=== PATIENT | female | born 1960 | race Caucasian/White ===

== ENCOUNTER 2019-07-24 09:04 | Emergency (ER) | payer OTHER, SELFPAY ==
[2019-07-24 09:08] VITALS: BP 177/117; PULSE 101; RESP 18; TEMP 36.7; O2SAT 99; BMI 29.5
--- NOTE | 2019-07-24 09:28 | PC.NURSE ---
left dorsalis pedis pulse doppled successfully
--- NOTE | 2019-07-24 09:31 | USCV_ITS ---
Nya Mayfield Age: 58 Gender: F : 1960 Exam Date: 07/24/2019 09:47 Ordering Phys: Jeanne Phan Technologist: SHOSHANA JARA Exam Location: [facility] – [place]_ Indication: pain/ swelling PROCEDURES: Venous duplex imaging was performed in only the left lower extremity. The following venous structures were evaluated: common femoral vein, profunda vein, proximal portion of the greater saphenous vein, femoral vein, and the popliteal vein. In addition, the posterior tibial and peroneal trunk were evaluated. Serial compression, augmentation maneuvers, and spectral Doppler flow evaluation were performed. FINDINGS: Superficial clot noted in the Left Greaster Saphenous Vein below knee and at the knee/ hunters canal area. Clot does not extend above the knee at this time. All other veins imaged appear free of clot at this time. CONCLUSIONS Superficial thrombus in the left Greater Saphenous Vein below knee and extending proximally to knee. Left lower extremity veins otherwise patent. Jameel Clement MD (Electronically Signed) Final Date: 24 July 2019 13:16 S
--- NOTE | 2019-07-24 09:45 | PC.NURSE ---
portable ultrasound at bedside
[2019-07-24 10:36] VITALS: BP 129/93; PULSE 84; O2SAT 97
--- NOTE | 2019-07-28 07:01 | W.ED.EXTPRO ---
HPI - Extremity Problem General: Chief complaint: Extremity Problem,Nontraumatic Stated complaint: Leg pains Time Seen by Provider: 07/24/19 09:10 Source: patient Mode of arrival: ambulatory Limitations: no limitations History of Present Illness: HPI Narrative: here for pain to L lower leg; concerned for possible blood clot as she has had one of these before; denies swelling/redness MD Complaint: extremity pain Onset (ago): day(s) Pain Consistency: constant Location: left Radiation: none Associated symptoms: Reports no associated symptoms; Deny chest pain, fever(s) or rash Review of Systems Const: Denies: fever or chills Eyes: Denies: change in vision or blurry vision Card: Denies: chest pain, palpitations, irregular heart rhythm, lightheadedness, syncope or shortness of breath on exertion Resp: Denies: shortness of breath, productive cough or pain on inspiration GI: Denies: abdominal pain, nausea, vomiting, heartburn/indigestion or diarrhea : Denies: painful urination Musc: Reports: extremity pain; Denies: neck pain, back pain or joint pain Skin/Breast: Denies: rash Neuro: Denies: headache, numbness in extremities, weakness in extremities, changes in sensation, lack of coordination, difficulty walking, frequent falls, dizziness or slurred speech PFSH ED PFSH: Statuses (acute, chronic, etc) shown below reflect problem list status as previously entered and may not be historically accurate Social History Smoking and tobacco status: never smoked Physical Exam Const: COMMON NORMALS: no apparent distress, oriented x3, alert and well nourished HENMT: COMMON NORMALS: normocephalic and head/scalp atraumatic HEAD & SCALP: normocephalic and atraumatic Neck/C-Spine: COMMON NORMALS: full ROM, no lymphadenopathy, supple and no meningeal signs Chest: COMMONS NORMALS: inspection of chest normal Resp: COMMON NORMALS: normal respiratory effort and clear to auscultation bilaterally AUSCULTATION: clear to auscultation bilaterally Cardio: COMMON NORMALS: regular rate and regular rhythm RATE: regular rate RHYTHM: regular rhythm GI: COMMON NORMALS: normal to inspection, nondistended, normoactive bowel sounds, soft to palpation, non-tender, no hepatosplenomegaly and no masses PALPATION: Yes soft and Yes no hepatosplenomegaly : COMMON NORMALS: Yes no CVA tenderness BLADDER/KIDNEY EXAM: Yes no CVA tenderness Back/Pelvis: COMMON NORMALS: no CVA tenderness and thoracic and lumbar spine normal to inspection Extremity: OTHER: TTP of L posterior lower leg; she has small palpable cord over L anterior knee consistent with superficial thrombus Neuro: COMMON NORMALS: oriented x3 SENSORIUM/ORIENTATION: Yes alert MENINGEAL SIGNS: Yes no meningeal signs Skin: COMMON NORMALS: no rashes or lesions noted GENERAL SKIN EXAM: no rashes or lesions noted Course Vital Signs: Vital signs: Vital Signs Temperature 98.1 F 07/24/19 09:08 Pulse Rate 84 07/24/19 10:36 Respiratory Rate 18 07/24/19 09:08 Blood Pressure 129/93 07/24/19 10:36 Pulse Oximetry 97 07/24/19 10:36 MDM - Extremity (Nontraumatic) MDM Narrative: Medical decision making narrative: pt has large superficial thrombus in GSV; clot is over 5cm in length so given current UpToDate guidelines I think it is advisable to place pt on at least 45 days of anti-coagulation and have her follow up for re-evaluation in 2 wks with her PCP Discharge Plan Discharge Patient Disposition: Home, Self-Care Clinical Impression: Superficial thrombophlebitis Qualifiers: Superficial thrombophlebitis-Involved body area: lower extremity Laterality: left Qualified Code(s): I80.02 - Phlebitis and thrombophlebitis of superficial vessels of left lower extremity Condition: Stable Prescriptions: New Eliquis 5 mg (74 tabs) tablets,dose pack See Rx Instructions .ROUTE .COMPLEX Qty: 74 RF: 0 No Action multivitamin Tablet 1 tab PO DAILY RF: 0 naproxen sodium 220 mg Tablet 220 mg PO DAILY PRN (Reason: Pain) RF: 0 magnesium oxide 500 mg Tablet 1,000 mg PO DAILY RF: 0 levothyroxine 112 mcg Tablet 112 mcg PO DAILY RF: 0 potassium chloride 99 mg PO DAILY RF: 0 Discharge Orders: Discharge Order (Routine); Ordered 07/24/19 Ordered By: Jeanne Phan Referrals: Siobhan Esquivel MD [Primary Care Provider] - Patient Instructions: Superficial Thrombophlebitis (ED), Thrombophlebitis - Superficial Activity Restrictions/Additional Instructions: YOU NEED TO FOLLOW UP WITH YOUR [facility] PROVIDER WITHIN THE NEXT 2 WKS FOR RE-EVALUATION AND TO INITIATE FURTHER TREATMENT PLANS. 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
== END 2019-07-24 10:36 | disposition home or self-care (01) ==
PROVIDERS: Emergency Provider Physician Assistant; Family Provider Family Medicine; PCP Family Medicine
DX: I80.02 Phlebitis and thrombophlebitis of superficial vessels of left lower extremity (principal)
CPT/HCPCS: 93971; 99281

== ENCOUNTER 2019-09-20 07:19 | Day surgery (SDC) | payer BC, SELFPAY ==
[2019-09-19 13:01] VITALS: BMI 51.2
--- NOTE | 2019-09-20 07:41 | P.ANESASSM_ITS ---
Pre-Anesthetic Assessment Pre-Anesthetic Assessment: Height/Weight: Height 1.57 m Weight 127.006 kg Preop Diagnosis: screening Proposed Procedure: Operation Date: 09/20/19 09:00 Proposed Procedures p Colonoscopy(Not Applicable) - Davy Zepeda MD Familial anesthetic complications: None Was Beta Krystle taken within 24 hour s: N/A Last intake: NPO > 8 hrr 09/18 1030 water Social: Social History: No alcohol and No tobacco Exam: Pre-Anes Outpt Exam: alert, oriented x 3, clear to auscultation bilaterally and regular rate & rhythm Airway: Cervical ROM: WNL MP: 2 Additional comments: missing teeth, Partial in place Pulmonary: Pulmonary: Asthma and URI Comments: congestion the last few days (no fevers or other symptoms) CV/HEM: CV/HEM: Anemia and None reported : : None reported Hepatic: Hepatic: None reported GI: GI: None reported Metabolic: Metabolic: Thyroid Musc/skel: Musc/skel: None reported Neuropsych: Neuropsych: None reported Anesthetic Plan: ASA status: 2 Anesthesia: MAC PFSH Anesthesia PFSH: Social History Smoking and tobacco status: never smoked Data Anesthesia Cardiac Studies: No Data to Display
[2019-09-20] MEDS: sodium chloride 0.9% 1,000 ML 30 ML (07:55)
[2019-09-20 08:08] VITALS: BP 162/93; PULSE 72; RESP 20; TEMP 36.6; O2SAT 97
--- NOTE | 2019-09-20 09:20 | W.PM.OPSUD ---
Surgery/Procedure H&P Update DATE OF PROCEDURE: September 20, 2019 DATE H&P PERFORMED: 08/28/19 H&P UPDATE INFORMATION: I have reviewed H&P completed within last 30 days, I have examined patient prior to procedure, No changes to prior documentation and H&P to be scanned into chart PREOP DIAGNOSIS: screening. Heme positive stools. Anemia. Epigastric pain. PLANNED PROCEDURE: Operation Date: 09/20/19 09:00 Proposed Procedures p Colonoscopy(Not Applicable) - Davy Zepeda MD Related Problem List Diagnoses (1) Occult blood positive stool: (2) Epigastric pain: (3) Encounter for screening colonoscopy: (4) Iron deficiency anemia:
[2019-09-20 10:03] VITALS: BP 122/77; PULSE 66; RESP 16; TEMP 36.3; O2SAT 99
[2019-09-20 10:17] VITALS: BP 128/85; PULSE 65; RESP 18; O2SAT 98
[2019-09-23 05:55] LABS: H. Pylori / CLO Test Negative
== END 2019-09-20 10:30 | disposition home or self-care (01) ==
PROVIDERS: PCP Nurse Practitioner; Visit Provider Family Medicine
PROC: 0DJD8ZZ Inspection of Lower Intestinal Tract, Via Natural or Artificial Opening Endoscopic (ICD-10-PCS; CPT 45378; principal; 2019-09-20 09:00)
PROC: 0DJ08ZZ Inspection of Upper Intestinal Tract, Via Natural or Artificial Opening Endoscopic (ICD-10-PCS; CPT 43235; 2019-09-20 09:00)
DX: R19.5 Other fecal abnormalities (principal); D64.9 Anemia, unspecified; R10.13 Epigastric pain; D50.9 Iron deficiency anemia, unspecified; K57.30 Diverticulosis of large intestine without perforation or abscess without bleeding; D12.3 Benign neoplasm of transverse colon; K29.70 Gastritis, unspecified, without bleeding; Z82.49 Family history of ischemic heart disease and other diseases of the circulatory system; Z79.82 Long term (current) use of aspirin
CPT/HCPCS: 12345; 43239; 45384; 87077; 88305; J2704; J7030

== ENCOUNTER 2019-12-05 15:23 | Inpatient (IN) | payer BC, SELFPAY ==
[2019-12-05] VITALS (7 sets, daily range): BP systolic 151–165; BP diastolic 68–88; PULSE 64–83; RESP 18–20; TEMP 36.4–36.6; O2SAT 94–98; BMI 46.3
--- NOTE | 2019-12-05 15:38 | W.ED.ABDPA2 ---
HPI - Abdominal Pain General: Chief Complaint: Abdominal Pain Stated Complaint: ABD PAIN N/V Time Seen by Provider: 12/05/19 15:30 History of Present Illness: HPI narrative: Patient is a 59-year-old female who presents today with complaint of pancreatitis . She has had abdominal pain and vomiting since 10 or 11 this morning. She admits to drinking alcohol last night which she said she is not supposed to do. She has had pancreatitis in the past, most recently in the fall had to be admitted. At that time she was told she had gallstones but they did not require any treatment. She denies blood in the emesis. MD elicited complaint: abdominal pain Pertinent past history: other (Pancreatitis) Onset (ago): hour(s) (6) Pain Consistency: constant Location: Epigastric Severity: similar to previous episodes Quality: burning Context: history of similar episodes and other (Alcohol) Associated Symptoms: Reports loose stools, nausea and vomiting; Denies chills and fever(s) Review of Systems General: Reports: 10 or more systems reviewed and unremarkable except in HPI and below Const: Reports: fatigue, malaise and diaphoresis; Denies: fever(s) or chills Eyes: Denies: change in vision ENMT: Denies: odynophagia Card: Denies: chest pain or swelling of feet/ankles Resp: Denies: dyspnea, productive cough or non-productive cough GI: Reports: abdominal pain, nausea and vomiting : Denies: flank pain or difficulty voiding Musc: Denies: neck pain or back pain Skin/Breast: Denies: rash Neuro: Denies: headache(s), numbness in extremities or weakness in extremities Galen/Lymph: Denies: easy bruising or easy bleeding PFSH ED PFSH: Social History Smoking and tobacco status: former smoker Physical Exam Const: COMMON NORMALS: patient oriented x3, no limitations and alert GENERAL APPEARANCE: cooperative and in distress HENMT: HEAD & SCALP: normal to inspection FACE & SINUS: normal facial exam Eye: GENERAL EYE: appearance normal, both eyes and all related structures Neck/C-Spine: COMMON NORMALS: supple, no meningeal signs and no JVD Chest: COMMONS NORMALS: normal inspection of the chest Resp: COMMON NORMALS: normal respiratory effort, No use of accessory muscles and clear to auscultation bilaterally AUSCULTATION: clear to auscultation bilaterally Cardio: COMMON NORMALS: no JVD, regular rate, regular rhythm and No murmurs present (Cardio) RATE: regular rate RHYTHM: regular rhythm GI: PALPATION: Yes Tenderness to palpation present (GI) Details: LUQ and RUQ Back/Pelvis: COMMON NORMALS: thoracic and lumbar spine normal to inspection Extremity: COMMON NORMALS: normal to inspection Neuro: COMMON NORMALS: patient oriented x3, moves all extremities, no focal motor deficits and no sensory deficits noted SENSORIUM/ORIENTATION: Yes alert MENINGEAL SIGNS: Yes no meningeal signs Psych: COMMON NORMALS: mental status grossly normal, cooperative and normal affect Skin: COMMON NORMALS: no rashes or lesions noted and turgor normal GENERAL SKIN EXAM: no rashes or lesions noted and turgor normal Course ED course: Patient reported mild improvement after morphine and Zofran. She told the nurse that she thought the Zofran was making her worse and she wanted something different. She was given p.o. Phenergan and another dose of morphine. After that she still complained of symptoms and was given a small dose of IV Haldol for her nausea. That did seem to help for some time. She continued to have occasional emesis and pain and with her elevated lipase it was felt appropriate that she be admitted for IV hydration and pain control. Hospitalist will admit. Dr. Roberts requested an ultrasound to make sure she did not have a gallstone that might require an ERCP. Ultrasound showed a gallstone but no cholecystitis or biliary obstruction. LFTs were normal. Dr. Dumont will admit. Vital Signs: Vital signs: Vital Signs Temperature 97.5 F L 12/05/19 15:30 Pulse Rate 83 12/05/19 15:30 Respiratory Rate 18 12/05/19 16:56 Blood Pressure 159/88 12/05/19 15:30 Pulse Oximetry 94 12/05/19 16:56 MDM - Abdominal Pain Lab Data: Labs: Lab Results 12/05/19 12/05/19 12/05/19 Range/Units 16:08 16:08 16:08 WBC 13.2 H (4.0-10.0) 10^3/ uL RBC 6.49 H (4.1-5.3) 10^6/u L Hgb 18.5 H (11.5-15.3) g/dL Hct 61.3 H (37.0-47.0) % MCV 94.5 (81-99) fL MCH 28.5 (28.0-34.0) pg MCHC 30.2 (30.0-36.0) g/dL RDW 16.0 H (12.1-15.1) % Plt Count 290 (130-400) 10^3/c mm MPV 9.0 (7.4-10.4) fL Neut % (Auto) 75.9 % Lymph % (Auto) 18.6 % Anderson % (Auto) 4.8 % Eos % (Auto) 0.0 % Baso % (Auto) 0.3 % Neut # (Auto) 10.0 H (1.8-7.7) 10^3/u L Lymph # (Auto) 2.5 (0.8-4.8) 10^3/u L Anderson # (Auto) 0.6 (0.2-0.9) 10^3/u L Eos # (Auto) 0.0 (0.0-0.8) 10^3/u L Baso # (Auto) 0.0 (0.0-0.1) 10^3/u L Nucleated RBC % (a uto) 0 % Nucleated RBCs # 0.0 /100WBC Sodium 140 (136-145) mmol/L Potassium 4.1 (3.5-5.1) mmol/L Chloride 102 (98-107) mmol/L Carbon Dioxide 19 L (22-29) mmol/L Anion Gap 23.1 H (5-19) BUN 6 L (8-23) mg/dL Creatinine 0.6 (0.5-0.9) mg/dL GFR Calculation 101.6 (90-130) mL/min Glucose 150 H (65-115) mg/dL Calculated Osmolal ity 289 (285-295) mOsm/k g Lactate 0.2 L (0.5-2.2) mmol/L Calcium 9.6 (8.5-10.5) mg/dL Total Bilirubin 0.9 (0.15-1.2) mg/dL AST 34 H (0-32) U/L ALT 19 (0-33) U/L Alkaline Phosphata se 111 H (35-105) IU/L Total Protein 7.5 (6.6-8.7) g/dL Albumin 3.9 (3.5-5.2) g/dL Globulin 3.6 (1.3-4.6) g/dL Lipase 1389 H (13-60) U/L Ethyl Alcohol < 10 (0-10) mg/dL Discharge Plan Discharge Admit Provider: Mahi Dumont Coding Level of Care Code 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
[2019-12-05] MEDS: ondansetron 2 mg/ML SDV 2 mL 4 MG IVP (16:03)
[2019-12-05] MEDS: morphine 4 mg/mL SDV 1 mL IVP ×2 (16:04→16:56)
[2019-12-05 16:20] LABS: Basophils % 0.3 %; Hematocrit 61.3 % (37.0-47.0); Hemoglobin 18.5 g/dL (11.5-15.3); Lymphocytes # 2.5 10^3/uL (0.8-4.8); Lymphocytes % 18.6 %; Mean Corpuscular HGB Conc 30.2 g/dL (30.0-36.0); Mean Corpuscular Hemoglobin 28.5 pg (28.0-34.0); Mean Corpuscular Volume 94.5 fL (81-99); Monocytes # 0.6 10^3/uL (0.2-0.9); Monocytes % 4.8 %; Neutrophils % 75.9 %; Nucleated Red Blood Cells % 0 %; Platelet Count 290 10^3/cmm (130-400); Red Blood Count 6.49 10^6/uL (4.1-5.3); White Blood Count 13.2 10^3/uL (4.0-10.0)
[2019-12-05 16:34] LABS: Lactate (Lactic Acid level) 0.2 mmol/L (0.5-2.2)
[2019-12-05 16:46] LABS: Alanine Aminotransferase 19 U/L (0-33); Albumin Level 3.9 g/dL (3.5-5.2); Alkaline Phosphatase 111 IU/L (35-105); Anion Gap 23.1 (5-19); Blood Urea Nitrogen 6 mg/dL (8-23); Calcium 9.6 mg/dL (8.5-10.5); Carbon Dioxide 19 mmol/L (22-29); Chloride 102 mmol/L (98-107); Globulin 3.6 g/dL (1.3-4.6); Glomerular Filtration Rate 101.6 mL/min (90-130); Glucose 150 mg/dL (65-115); Osmolality Calculated 289 mOsm/kg (285-295); Potassium 4.1 mmol/L (3.5-5.1); Sodium 140 mmol/L (136-145); Total Bilirubin 0.9 mg/dL (0.15-1.2); Total Protein 7.5 g/dL (6.6-8.7)
[2019-12-05 16:47] LABS: Alcohol Level < 10 mg/dL (0-10); Aspartate Amino Transferase 34 U/L (0-32)
[2019-12-05] MEDS: promethazine 25 mg Tablet PO (16:55)
[2019-12-05 17:00] LABS: Lipase 1389 U/L (13-60)
--- NOTE | 2019-12-05 18:01 | US_ITS ---
WS: [id number] ULTRASOUND ABDOMEN LIMITED CLINICAL INFORMATION: pancreatitis, h/o gallstones COMPARISON: None. FINDINGS: Liver Size: Normal. Craniocaudal length: 10.9 cm. Echogenicity: Normal. Surface nodularity: None. Mass (size and location): None. Bile ducts Intrahepatic ducts: Normal. Common bile duct diameter: 0.3 cm. Gallbladder Cholelithiasis with large calculus in the gallbladder neck measuring 1.9 x 1.7 CM. Normal gallbladder wall. No pericholecystic fluid Pancreas Echogenic pancreas consistent with pancreatitis Right kidney: Normal. Hydronephrosis: None. Size: 12.7 cm x 5.4 cm x 5.0 cm. Abdominal aorta and IVC Visualized portions are normal. Ascites: None. US/US gall bladder [id number] IMPRESSION: 1. Echogenic edematous pancreas consistent with pancreatitis as seen on concur rent CT. 2. Large gallstone in the neck of the gallbladder measuring 1.9 x 1.7 cm. No g allbladder wall thickening or pericholecystic fluid. 3. Normal visualized common bile duct measuring 3.3 mm. 4. No hydronephrosis in right kidney.
[2019-12-05] MEDS: haloperidol inj 5 mg/mL INJ 1 mL 2 MG IVP (18:04)
--- NOTE | 2019-12-05 21:06 | PM.HP ---
Providers/Chief Complaint Admitting Physician: Mahi Dumont MD Primary Care Provider: RANCHO Quintana Chief Complaint: ABD PAIN N/V History of Present Illness Nya Mayfield is a 59 year old female with PMH hypothyroidism, obesity, alcohol abuse, pancreatitis in 01/2019 and 02/2019 , hx recurrent superficial thrombophlebitis of GSV, h/o uterine cancer s/p hysterectomy p/w abdominal pain and vomiting that started this morning. H/o binge drinking alcohol last night. Undrewent US in ER which showed a gallstone but no cholecystitis or biliary obstruction. LFTs were normal. Lipase is elevated at >1000. Prior MRI in 01/2019 with pancreatitis with associated pancreatic, peripancreatic edema. No pancreatic mass identified at the time. On previous admissions, lipid panel and Ca have been normal. Other labs notable for leukocytosis o 13.2, Hb 18.5, electrolytes within range. pain is currently not well controlled. Review of Systems General: Reports: 10 or more systems reviewed and unremarkable except in HPI and below Const: Denies: fever(s), chills or body aches Eyes: Denies: change in vision, blurry vision or photophobia ENMT: Reports: hoarseness; Denies: throat pain, enlarged tonsils, odynophagia or nasal congestion Card: Denies: chest pain, palpitations, irregular heart rhythm, edema, swelling of feet/ankles, lightheadedness, pre-syncope, dyspnea on exertion or orthopnea Resp: Denies: dyspnea, productive cough, non-productive cough, wheezing, stridor, pain on inspiration, change in phlegm color, hemoptysis or chest congestion GI: Reports: abdominal pain, nausea and vomiting; Denies: hematemesis, coffee ground emesis, dysphagia, heartburn, diarrhea, constipation, GI cramping, change in stool character, hematochezia or melena : Denies: flank pain, difficulty voiding, dysuria, urinary frequency, urinary urgency, urinary hesitancy or hematuria Musc: Denies: neck pain, back pain, extremity pain, joint swelling, joint warmth or deformity Neuro: Denies: headache(s), numbness in extremities, weakness in extremities, sensory changes, difficulty walking, frequent falls, dizziness, vertigo, behavioral changes, Slurred speech present or seizure-like activity Psych: Denies: anxiety, depression, suicidal ideation or homicidal ideation Endo: Denies: polyuria, polydipsia, tired all the time, cold intolerance or hot flashes Galen/Lymph: Denies: easy bruising or easy bleeding Medications/Allergies Home Medications Medication Instructions Recorded Confirmed Last Taken Type magnesium oxide 1,000 mg PO DAILY 07/24/19 12/05/19 07/23/19 History multivitamin 1 tab PO DAILY 07/24/19 12/05/19 07/24/19 History naproxen sodium 220 mg PO DAILY PRN 07/24/19 12/05/19 Unknown History albuterol sulfate 2 puff INHALATION Q4H PRN 09/19/19 12/05/19 Unknown History Vitamin C 1 tab PO DAILY 12/05/19 12/05/19 Unknown History aspirin [Aspir-81] 81 mg PO DAILY 12/05/19 12/05/19 Unknown History ferrous sulfate 325 mg PO DAILY 12/05/19 12/05/19 12/05/19 History levothyroxine [Euthyrox] 125 mcg PO DAILY 12/05/19 12/05/19 12/04/19 History potassium gluconate 595 mg PO DAILY 12/05/19 12/05/19 12/04/19 History Allergies Allergy/AdvReac Type Severity Reaction Status Date / Time codeine Allergy ALGY-Hives Verified 12/05/19 15:34 PFSH Acute PFSH: Medical History (Updated 12/06/19 @ 05:03 by Mahi Dumont MD) Alcohol abuse Gall stones Hypothyroidism Obesity Pancreatitis Superficial thrombophlebitis Uterine cancer Vaginal bleeding Surgical History (Updated 12/06/19 @ 05:03 by Mahi Dumont MD) H/O adenoidectomy H/O: hysterectomy History of dilatation and curettage History of tonsillectomy Family History (Updated 12/05/19 @ 21:21 by Mahi Dumont MD) Other Dementia Social History (Updated 12/05/19 @ 21:21 by Mahi Dumont MD) Smoking and tobacco status: former smoker Alcohol intake: current Desire information about alcohol rehabilitation?: No Counseling given: Yes Last alcohol use date: 12/04/19 Vitals/I&O/Wt Last Vital Signs Temp 97.5 F L 12/05/19 15:30 Pulse 76 12/05/19 20:42 Resp 18 12/05/19 20:42 BP 151/68 12/05/19 20:42 Pulse Ox 98 12/05/19 20:42 Weight last 48 hrs Weight 122.47 kg Physical Exam Narrative: EXAM NARRATIVE: GEN: Awake, alert and oriented, no acute distress CVS: S1S2 N RS: CTA B/L Abd: Soft, TTP in epigastric area, no ebound or guading 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 Acute pancreatitis - IVF hydration with D5NS @ 125 cc/hr - Pain control with dilaudid and Toradol alternating - nausea management with Zofran and reglan -check lipid panel for TG level - Mild leukocytosis and elevated Hb may be related to dehydration. Hold off on abx for now as no overt signs of sepsis, trend both Hb and leukocytosis - CT abdomen/pelvis to evaluate pancreatitis. Given h/o recurrent pancreatitis and superficial thrombophelebitis, would want to exclude Trosseau's syndrome with underlying malignancy. - Bowel rest for now, NPO, can slowly advance diet as tolerated 2. Alcohol abuse: Counselled regarding ill effects of alcohol, it's role in precipitating pancreatitis 3. Hypertension : no past history. Currently may be related to pain. 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
--- NOTE | 2019-12-05 21:35 | CTR_ITS ---
PROCEDURE INFORMATION: Exam: CT Abdomen And Pelvis With Contrast Exam date and time: 12/05/2019 10:00 PM Age: 59 years old Clinical indication: Abdominal pain; Acute; Prior surgery; Surgery date: 6+ months; Surgery type: D c; Additional info: Acute pancreatitis TECHNIQUE: Imaging protocol: Computed tomography of the abdomen and pelvis with intravenous contrast. Radiation optimization: All CT scans at this facility use at least one of these dose optimization techniques: automated exposure control; mA and/or kV adjustment per patient size (includes targeted exams where dose is matched to clinical indication); or iterative reconstruction. Contrast material: OMNI; Contrast volume: 300 ml; Contrast route: IV; COMPARISON: CT abdomen pelvis w con* [id number] 02/07/2019 6:26 PM RADIATION DOSE METRICS: Total DLP: 2020.95 mGy-cm FINDINGS: Lungs: Dependent atelectasis in both lung bases. Liver: Mild diffuse fatty infiltration of the liver. Gallbladder and bile ducts: Normal. No calcified stones. No ductal dilation. Pancreas: Diffuse edema throughout the pancreas with peripancreatic fat stranding and acute peripancreatic fluid extending from the head into the right retroperitoneum and pericolic gutter. No organized fluid collection. Spleen: Normal. No splenomegaly. Adrenals: Normal. No mass. Kidneys and ureters: Normal. No hydronephrosis. Stomach and bowel: Diverticulosis of the distal colon. The colon is decompressed. The small bowel and stomach are unremarkable. Appendix: The appendix is normal. Intraperitoneal space: Unremarkable. No free air. No significant fluid collection. Vasculature: Unremarkable. No abdominal aortic aneurysm. Lymph nodes: Unremarkable. No enlarged lymph nodes. Bladder: Unremarkable as visualized. Reproductive: The uterus and ovaries are absent. Bones/joints: Unremarkable. No acute fracture. Soft tissues: Fat containing umbilical hernia. CT/CT abdomen pelvis w con* [id number] IMPRESSION: 1. Acute interstitial edematous pancreatitis. 2. Acute peripancreatic fluid extending from the pancreatic head into the right retroperitoneum and pericolic gutter. No organized fluid collection or pseudocyst. Radiation Dose CTDIVOL = (mGy): DLP = 2020.95 (mGy-cm)
--- NOTE | 2019-12-05 21:35 | XR_ITS ---
WS: [id number] CHEST XRAY TECHNIQUE: Portable chest. CLINICAL INFORMATION: tachypnea COMPARISON: February 07, 2019. FINDINGS: Heart: Normal cardiac silhouette. Lungs: Lungs are clear. No consolidation or pleural effusion. Bones: Normal visualized bony structures. XR/XR chest 1V portable [id number] IMPRESSION: No acute chest findings
[2019-12-05 21:36] LABS: Bilirubin Urine Neg (NEGATIVE); Blood Urine Neg (Negative); Glucose Urine UA Norm (Normal); Ketones Urine 1+ (Negative); Nitrate Urine Negative (Negative); Protein Urine Trace (Negative); Specific Gravity, Urine 1.025 (1.005-1.030); Urine Appearance Turbid (CLEAR); Urine Color Yellow (Yellow); Urobilinogen Urine Norm (Negative); pH Urine 5 (5-7)
[2019-12-05 21:37] LABS: Add Urine Microscopic? YES; Amorphous Sediment Urine 1+; Bacteria Urine TRACE; Leukocyte Esterase Urine Negative (Negative); Mucus Urine 1+; RBC Urine 0-4 /hpf (0-2); Squamous Epithelial Cell Urine 0-4 (0-5)
[2019-12-05 21:38] LABS: Add Urine Culture? No
[2019-12-05] MEDS: HYDROmorphone 1 mg/mL INJ 1 mL 0.5 MG IVP (22:04)
[2019-12-05 22:05] LABS: Chol HDL Ratio 3.61 mg/dL (0.0-4.40); Cholesterol 256 mg/dL (0-200); HDL Cholesterol 71 mg/dL (60-100); LDL Cholesterol Calculated 155 mg/dL (50-129); LDL HDL Ratio 2.18 RATIO (0.00-3.22); Triglycerides 150 mg/dL (0-150)
--- NOTE | 2019-12-05 22:13 | PC.NURSE ---
going to ct at this time via w/c
[2019-12-05] MEDS: iohexol 300 mg/mL 100 mL Btl 95 ML IV (22:28)
[2019-12-05] MEDS: metoclopramide 5 mg/mL SDV 2 mL IVP (22:31)
[2019-12-05] MEDS: enoxaparin 40 mg/0.4 mL Syringe SUBCUT (22:42)
[2019-12-05] MEDS: dextrose 5%-sod chloride 0.9% 1,000 ML 125 ML IV (22:43)
[2019-12-06] VITALS (14 sets, daily range): BP systolic 132–159; BP diastolic 76–107; PULSE 76–114; RESP 16–24; TEMP 36.7–37.9; O2SAT 91–95
[2019-12-06] MEDS: ketorolac 30 mg/mL INJ IVP ×2 (00:30→11:40)
[2019-12-06] MEDS: HYDROmorphone 1 mg/mL INJ 1 mL 0.5 MG IVP ×4 (03:45→22:58)
[2019-12-06 05:11] LABS: Basophils % 0.1 %; Eosinophils % 0.1 %; Hematocrit 54.4 % (37.0-47.0); Hemoglobin 16.8 g/dL (11.5-15.3); Lymphocytes # 0.9 10^3/uL (0.8-4.8); Lymphocytes % 7.4 %; Mean Corpuscular HGB Conc 30.9 g/dL (30.0-36.0); Mean Corpuscular Hemoglobin 28.6 pg (28.0-34.0); Mean Corpuscular Volume 92.5 fL (81-99); Mean Platelet Volume 10.2 fL (7.4-10.4); Monocytes # 0.7 10^3/uL (0.2-0.9); Monocytes % 6.1 %; Neutrophils # 9.9 10^3/uL (1.8-7.7); Nucleated Red Blood Cells % 0 %; Platelet Count 267 10^3/cmm (130-400); Red Blood Count 5.88 10^6/uL (4.1-5.3); White Blood Count 11.5 10^3/uL (4.0-10.0)
[2019-12-06 05:49] LABS: Alanine Aminotransferase 15 U/L (0-33); Albumin Level 3.5 g/dL (3.5-5.2); Alkaline Phosphatase 101 IU/L (35-105); Anion Gap 19.3 (5-19); Aspartate Amino Transferase 24 U/L (0-32); Blood Urea Nitrogen 8 mg/dL (8-23); Calcium 8.8 mg/dL (8.5-10.5); Carbon Dioxide 22 mmol/L (22-29); Chloride 103 mmol/L (98-107); Globulin 2.6 g/dL (1.3-4.6); Glomerular Filtration Rate 72.9 mL/min (90-130); Glucose 153 mg/dL (65-115); Osmolality Calculated 289 mOsm/kg (285-295); Potassium 4.3 mmol/L (3.5-5.1); Sodium 140 mmol/L (136-145); Total Bilirubin 1.1 mg/dL (0.15-1.2); Total Protein 6.1 g/dL (6.6-8.7)
[2019-12-06] MEDS: dextrose 5%-sod chloride 0.9% 1,000 ML 125 ML IV ×3 (06:06→21:36)
[2019-12-06] MEDS: ondansetron 2 mg/ML SDV 2 mL 4 MG IVP (08:01)
[2019-12-06] MEDS: aspirin 81 mg EC Tablet PO (08:30)
[2019-12-06] MEDS: levothyroxine 125 mcg Tablet PO (08:30)
--- NOTE | 2019-12-06 10:04 | PC.CHAP ---
Pastoral Care Encounter/Spiritual Assessment Type of Contact [] Declined amusement park worker visit [] Patient/Family/Request visit [] Outpatient visit [] Follow-up visit [] Physician referral [] Code/Alert [x] Routine visit [] Staff referral [] Actively dying [] Patient sleeping [] Family support [] [] Out of room [] Palliative care [] [] Receiving care in room [] Pre-surgical visit [] Trauma [] Long length of stay [] ICU visit [] Other: Relational/Emotional Strength [] Patient feels connected with others/family/visitors/staff [] Distress [] Loneliness/isolation [] Abandonment Spirituality of Patient [] Person of [place] [] Attends Pentecostal of their [place] [x] Believes in Prayer [] Reads Bible or Alevism materials [] There are Spiritual issues to be addressed 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 [x] Prayer [] Active listening [] Non-anxious presence [] Spiritual/emotional support [] Crisis/trauma care [] Spiritual counseling [] Bereavement support [] Provided bereavement packet [] Provided Bible/devotional materials [] Provided toy/stuffed animal, coloring book to patient or family member [] Provided Communion [] Anointing/[place] [] Salvation [x] Completed spiritual assessment [] Other: Impact on Illness or Injury [] Angry [] Fearful [] Anxious [] Often cries [] Exhaustion [] Unable to work [] Unable to attend buddhism [] Unable to walk/stand [] Unable to read [] Unable to drive [] Unable to eat/drink [] Unable to sleep [] Unable to be with family [] Patient intubated [] Other: Summary Patient trying to get comfortable, resting well. Time spent with patient 15min
[2019-12-06] MEDS: amlodipine 5 mg Tablet PO (11:34)
--- NOTE | 2019-12-06 13:32 | PM.PN ---
Subjective Subjective: Interval history: Currently does not have significant follow-up pain, although still some residual periumbilically, as well as some tenderness on exam. Some nausea, although overall this is better after treatment. No vomiting. She would like to try some clear liquids. Vitals/I&O/Wt Last Vital Signs Temp 98.3 F 12/06/19 11:33 Pulse 98 12/06/19 11:33 Resp 22 H 12/06/19 11:33 BP 147/94 12/06/19 11:33 Pulse Ox 95 12/06/19 11:33 12/05/19 12/06/19 12/06/19 22:59 06:59 14:59 Intake Total 0 / 0 922.917 / 922.917 Output Total 200 / 200 200 / 400 Balance -200 / -200 722.917 / 522.917 Weight last 48 hrs Weight 122.47 kg Physical Exam Const: COMMON NORMALS: no acute distress and patient oriented x3 NUTRITIONAL APPEARANCE: obese morbidly obese ORIENTATION/CONSCIOUSNESS: Yes awake OTHER: Sitting up at bedside. Appears comfortable. HENMT: COMMON NORMALS: oropharynx normal Neck/C-Spine: COMMON NORMALS: no JVD Resp: COMMON NORMALS: normal respiratory effort and clear to auscultation bilaterally AUSCULTATION: clear to auscultation bilaterally Cardio: COMMON NORMALS: no JVD, regular rhythm, S1 normal heart sound present, S2 normal heart sound present and No murmurs present (Cardio) RHYTHM: regular rhythm HEART SOUNDS: S1 normal heart sound present and S2 normal heart sound present GI: COMMON NORMALS: Normal to inspection, nondistended, normoactive bowel sounds present, Soft to palpation and non-tender PALPATION: Yes Soft to palpation Extremity: COMMON NORMALS: no joint enlargement and no pedal edema (Trace if any on the left, she states that the leg was previously injured by a horse, and always has slightly more swelling.) Neuro: COMMON NORMALS: patient oriented x3 and moves all extremities Skin: COMMON NORMALS: no rashes or lesions noted GENERAL SKIN EXAM: no rashes or lesions noted Data : 12/06/19 04:37 12/06/19 04:37 Micro: Microbiology 12/06/19 04:37 Blood Culture - Preliminary Blood SPECIMEN COLLECTED 12/06/19 04:41 Blood Culture - Preliminary Blood SPECIMEN COLLECTED A&P Assessment and plan (1) Pancreatitis: Symptomatically she is doing better, some residual pain, but is not severe. Nausea is better. No vomiting. She would like to try some clears. At this time continue to monitor given extent of inflammatory changes noted on CT scan. Will recheck lipase in the morning. Tomorrow if continues to do well, tolerating diet, can cautiously return home. Discussed with her to avoid alcohol completely. She states she does not drink regularly, and states that head not had any binges in a long time, thought that she could have some alcohol and get away with it . She has had pancreatitis previously. Discussed with her noted gallstone on ultrasound, but there is no suggestion of cholecystitis, with normal bile ducts and pancreatic duct. Triglycerides are not elevated. Calcium is normal. Suspect this is related to alcohol intake, however, she is also a former smoker, with recurrent episodes, history of thrombophlebitis, would benefit from additional assessment after discharge to exclude possible underlying malignancy. Status: Acute (2) Alcohol abuse: She denies any ongoing drinking. Says the current episode is isolated compared to in the past when this occurred more often. She does not say how much she had to drink. Discussed with her to completely abstain from alcohol. We may offer her some options for rehabilitation, although she states is not interested. Status: Acute (3) HTN (hypertension): Status: Acute Attestations Medical Necessity Statement*: Continue admission for assessment and management of acute pancreatitis. 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
--- NOTE | 2019-12-06 16:30 | PC.NURSE ---
Adhesion Tester walked with pt to the bathroom in room pt tolerated well.
[2019-12-06] MEDS: metoclopramide 5 mg/mL SDV 2 mL IVP (18:28)
[2019-12-06] MEDS: enoxaparin 40 mg/0.4 mL Syringe SUBCUT (21:35)
[2019-12-07] VITALS (8 sets, daily range): BP systolic 112–158; BP diastolic 76–97; PULSE 60–105; RESP 16–18; TEMP 36.7–37.1; O2SAT 93–95
[2019-12-07] MEDS: HYDROmorphone 1 mg/mL INJ 1 mL 0.5 MG IVP (04:32)
[2019-12-07] MEDS: dextrose 5%-sod chloride 0.9% 1,000 ML 125 ML IV ×2 (04:34→12:29)
[2019-12-07 06:09] LABS: Basophils % 0.3 %; Eosinophils # 0.1 10^3/uL (0.0-0.8); Eosinophils % 1.1 %; Hematocrit 51.5 % (37.0-47.0); Hemoglobin 15.9 g/dL (11.5-15.3); Lymphocytes # 0.8 10^3/uL (0.8-4.8); Mean Corpuscular HGB Conc 30.9 g/dL (30.0-36.0); Mean Corpuscular Hemoglobin 29.3 pg (28.0-34.0); Mean Corpuscular Volume 94.8 fL (81-99); Mean Platelet Volume 10.2 fL (7.4-10.4); Monocytes # 0.7 10^3/uL (0.2-0.9); Monocytes % 5.5 %; Neutrophils # 11.6 10^3/uL (1.8-7.7); Neutrophils % 86.6 %; Nucleated Red Blood Cells % 0 %; Platelet Count 207 10^3/cmm (130-400); Red Blood Count 5.43 10^6/uL (4.1-5.3); White Blood Count 13.3 10^3/uL (4.0-10.0)
[2019-12-07 06:29] LABS: Alanine Aminotransferase 11 U/L (0-33); Albumin Level 2.8 g/dL (3.5-5.2); Alkaline Phosphatase 81 IU/L (35-105); Anion Gap 13.7 (5-19); Aspartate Amino Transferase 18 U/L (0-32); Blood Urea Nitrogen 10 mg/dL (8-23); Calcium 8.8 mg/dL (8.5-10.5); Carbon Dioxide 23 mmol/L (22-29); Chloride 106 mmol/L (98-107); Creatinine Clr Calc Pharmacy 152.5946; Globulin 3.3 g/dL (1.3-4.6); Glomerular Filtration Rate 125.4 mL/min (90-130); Glucose 139 mg/dL (65-115); Osmolality Calculated 286 mOsm/kg (285-295); Potassium 3.7 mmol/L (3.5-5.1); Sodium 139 mmol/L (136-145); Total Bilirubin 1.1 mg/dL (0.15-1.2); Total Protein 6.1 g/dL (6.6-8.7)
[2019-12-07 07:07] LABS: Lipase 587 U/L (13-60)
[2019-12-07] MEDS: aspirin 81 mg EC Tablet PO (08:02)
[2019-12-07] MEDS: levothyroxine 125 mcg Tablet PO (08:02)
[2019-12-07] MEDS: amlodipine 5 mg Tablet PO (08:02)
[2019-12-07] MEDS: ketorolac 30 mg/mL INJ IVP (11:19)
--- NOTE | 2019-12-07 15:48 | P.DS_ITS ---
Discharge Providers Date of Admission: 12/05/19 19:21 Date of Discharge: December 07, 2019 Attending Provider at Admission: Mahi Dumont MD Attending Provider at Discharge: Yovani Roberts Primary Care Provider: RANCHO Quintana Diagnoses at Discharge Discharge Diagnosis (1) Pancreatitis: Status: Acute (2) Alcohol abuse: Status: Acute (3) HTN (hypertension): Status: Acute Problem details: Started amlodipine. Reason for Visit Reason for Visit: Reason For Visit: ABD PAIN N/V Hospital Course Hospital Course: Pleasant 59-year-old lady with history of hypothyroidism, prior episode of pancreatitis in January 2019, February 2019, recurrent superficial thrombophlebitis of GSV, history of uterine cancer, status post hysterectomy, iron deficiency anemia, heme positive stool, presented complaining of abdominal pain and nausea and vomiting, with finding of acute pancreatitis, with elevated lipase, finding of pancreatic edema, peripancreatic fluid, without evidence of necrosis or abscess. She was treated with bowel rest, IV hydration, symptomatic management of nausea. It appears this episode started after an episode of alcohol intake, similar to prior episode. The last episode was elevated for biliary disease. Currently CT abdomen pelvis was obtained, with no biliary abnormality noted. Triglycerides were normal. Calcium not elevated. Discussed extensively concern for alcohol induced pancreatitis, need for continued abstinence from alcohol, she verbalized understanding and stated she will keep away from alcohol entirely. She declined to be provided with additional permission regarding rehabilitation options. At this time would also recommend she discontinue NSAIDs as well. Given recurrence of pancreatitis, recurrence of superficial thrombophlebitis, consider additional evaluation by gastroenterology. Ensure completeness of health maintenance screenings to exclude possibility of underlying malignancy. While in the hospital noted to also have hypertension, and so was started on amlodipine, with improvement in blood pressure. With conservative management her symptoms significantly improved. Her pain has resolved. She is tolerating clear liquids. She is overall feeling much better, and is ready to return home. Physical Exam Const: COMMON NORMALS: no acute distress and patient oriented x3 NUTRITIONAL APPEARANCE: obese morbidly obese ORIENTATION/CONSCIOUSNESS: Yes awake OTHER: Sitting up. Working on laptop. Empty jelly containers on the table. Appears comfortable. HENMT: COMMON NORMALS: oropharynx normal Neck/C-Spine: COMMON NORMALS: no JVD Resp: COMMON NORMALS: normal respiratory effort and clear to auscultation bilaterally AUSCULTATION: clear to auscultation bilaterally Cardio: COMMON NORMALS: no JVD, regular rhythm, S1 normal heart sound present, S2 normal heart sound present and No murmurs present (Cardio) RHYTHM: regular rhythm HEART SOUNDS: S1 normal heart sound present and S2 normal heart sound present GI: COMMON NORMALS: Normal to inspection, nondistended, normoactive bowel sounds present, Soft to palpation and non-tender PALPATION: Yes Soft to palpation Extremity: COMMON NORMALS: no joint enlargement and no pedal edema Neuro: COMMON NORMALS: patient oriented x3 and moves all extremities Skin: COMMON NORMALS: no rashes or lesions noted GENERAL SKIN EXAM: no rashes or lesions noted Discharge Data Data Completed and Pending: Completed Studies During Hospitalization Category Date Time Status CT abdomen pelvis w con* [id number] Rout ine Cat Scan 12/05/19 21:35 Completed XR chest 1V ngoc ble [id number] Urgent Exams 12/05/19 21:35 Completed US gall bladder 7 [id number] Urgent Ultrasound 12/05/19 18:01 Completed Pending at discharge Category Date Time Status Blood Culture Sta t Lab 12/06/19 04:37 Results Complete Blood Co unt w/Auto AM LABS Lab 12/08/19 04:00 Ordered Comprehensive Met abolic Panel AM LA BS Lab 12/08/19 04:00 Ordered Lipase AM LABS Lab 12/08/19 04:00 Ordered Labs from last 24 hours 12/07/19 12/07/19 12/07/19 05:10 05:10 05:10 WBC 13.3 H RBC 5.43 H Hgb 15.9 H Hct 51.5 H MCV 94.8 MCH 29.3 MCHC 30.9 RDW 16.0 H Plt Count 207 MPV 10.2 Neut % (Auto) 86.6 Lymph % (Auto) 6.0 [place] % (Auto) 5.5 Eos % (Auto) 1.1 Baso % (Auto) 0.3 Neut # (Auto) 11.6 H Lymph # (Auto) 0.8 [place] # (Auto) 0.7 Eos # (Auto) 0.1 Baso # (Auto) 0.0 Nucleated RBC % (a uto) 0 Nucleated RBCs # 0.0 Sodium 139 Potassium 3.7 Chloride 106 Carbon Dioxide 23 Anion Gap 13.7 BUN 10 Creatinine 0.5 GFR Calculation 125.4 Glucose 139 H Calculated Osmolal ity 286 Calcium 8.8 Total Bilirubin 1.1 AST 18 ALT 11 Alkaline Phosphata se 81 Total Protein 6.1 L Albumin 2.8 L Globulin 3.3 Lipase 587 H Vitals: Last Vital Signs Temp 98.4 F 12/07/19 11:27 Pulse 100 12/07/19 11:27 Resp 18 12/07/19 11:27 BP 138/88 12/07/19 11:27 Pulse Ox 95 12/07/19 11:27 Discharge Plan Discharge Patient Disposition: Home, Self-Care Condition: Stable Prescriptions: New amlodipine 5 mg Tablet 5 mg PO DAILY Qty: 30 RF: 0 Continued multivitamin Tablet 1 tab PO DAILY RF: 0 magnesium oxide 500 mg Tablet 1,000 mg PO DAILY RF: 0 albuterol sulfate 90 mcg/actuation Hfa Aerosol Inhaler 2 puff INHALATION Q4H PRN (Reason: Shortness Of Breath) RF: 0 Aspir-81 81 mg Tablet,Delayed Release (Dr/Ec) 81 mg PO DAILY RF: 0 ferrous sulfate 325 mg (65 mg iron) tablet 325 mg PO DAILY RF: 0 Euthyrox 125 mcg tablet 125 mcg PO DAILY RF: 0 potassium gluconate 595 mg (99 mg) Tablet 595 mg PO DAILY RF: 0 Vitamin C 1 tab PO DAILY RF: 0 Discontinued naproxen sodium 220 mg Tablet 220 mg PO DAILY PRN (Reason: Pain) RF: 0 Discharge Orders: Discharge Order (Routine); Ordered 12/07/19 Ordered By: Yovani Roberts Referrals: Ml Alexandra FNP [Primary Care Provider] - 4-7 days (Please call Monday to set up a follow up appointment) Discharge Diet: Advance as tolerated and Cardiac Discharge Activity: Increase activity as tolerated Patient Instructions: Amlodipine (By mouth), Pancreatitis (GEN), Chronic Hypertension (GEN) Activity Restrictions/Additional Instructions: Avoid any alcohol. Would avoid NSAIDs like ibuprofen, Aleve/naproxen, etc NSTEMI lead to irritation of the stomach, nausea, vomiting, or other symptoms. MRI of your pancreas was done back in 01/2019, without evidence of bile duct or pancreatic duct obstruction. Due to recurrence of pancreatitis episode, please discuss with your primary care doctor about referral to gastroenterology for additional assessment. 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
--- NOTE | 2019-12-07 16:15 | PC.NURSE ---
Reviewed discharge with patient at this time. Patient verbalized understanding of discharge medications and follow up appointments. IV removed intact. Patient is A&Ox3. Patient denies any pain. Patient whell chaired to private car.
== END 2019-12-07 16:15 | disposition home or self-care (01) | DRG 439 ==
LOC: ER 16:05 → MEDSURG 12-06 07:39
PROVIDERS: Emergency Medicine; Admitting Provider Student in an Organized Health Care Education/Training Program; PCP Nurse Practitioner; Visit Provider Internal Medicine
DX: K85.20 Alcohol induced acute pancreatitis without necrosis or infection (principal); Z68.42 Body mass index [BMI] 45.0-49.9, adult; E03.9 Hypothyroidism, unspecified; E66.9 Obesity, unspecified; F10.10 Alcohol abuse, uncomplicated; Z90.710 Acquired absence of both cervix and uterus; Z87.891 Personal history of nicotine dependence; I10 Essential (primary) hypertension; K80.80 Other cholelithiasis without obstruction
CPT/HCPCS: 12345; 36415; 71045; 74177; 76705; 80053; 80061; 80307; 81001; 83605; 83690; 83735; 85025; 87040; 96372; 96375; 99282; A9270; J1170; J1630; J1650; J1885; J2270; J2405; J2765; Q0169; Q9967

== ENCOUNTER 2020-07-06 11:15 | Inpatient (IN) | payer BC, SELFPAY ==
[2020-07-06 11:29] VITALS: BP 123/87; PULSE 78; RESP 16; TEMP 36.8; O2SAT 96; BMI 39.1
--- NOTE | 2020-07-06 11:47 | US_ITS ---
WS: [id number] Complete ABDOMINAL ULTRASOUND HISTORY: Abdominal Pain COMPARISON: 12/05/2019 Liver: 15.2 cm in length. Poorly visualized liver due to hepatic steatosis. Very coarsened echotextur e throughout the liver. Neoplasm cannot be excluded. No bile duct dilatation. Gallbladder: Large stone in the gallbladder near the neck measures 2.9 cm. No adjacent inflammation o r fluid. Gallbladder wall thickness: 0.2 cm. Pancreas: Poorly visualized. CBD: 0.5 cm. Right kidney: 12.8 cm x 5.8 cm x 4.9 cm. No mass, cortical thickening or hydronephrosis. Left kidney: 11.7 cm x 5.4 cm x 5.7 cm. No mass, cortical thickening or hydronephrosis. Spleen: Normal size and echogenicity. Abdominal aorta: Not visualized. Tiny amount of fluid adjacent to the liver. US/US abdomen complete* [id number] IMPRESSION: 1. Significantly limited evaluation of the abdominal organs due to body habitu s. 2. Chronic hepatocellular disease, probably hepatic steatosis. The liver is po stefano visualized. 3. Cholelithiasis. No evidence for acute cholecystitis or bile duct dilatation . 4. Pancreas is not visualized. 5. Small amount of ascites.
--- NOTE | 2020-07-06 16:15 | CTR_ITS ---
PROCEDURE INFORMATION: Exam: CT Abdomen And Pelvis With Contrast Exam date and time: 07/06/2020 5:15 PM Age: 59 years old Clinical indication: Nausea; Abdominal pain; Localized; Upper; Prior surgery; Surgery type: D & c, hyst; Additional info: Abd pain TECHNIQUE: Imaging protocol: Computed tomography of the abdomen and pelvis with intravenous contrast. Total images: 277 Radiation optimization: All CT scans at this facility use at least one of these dose optimization techniques: automated exposure control; mA and/or kV adjustment per patient size (includes targeted exams where dose is matched to clinical indication); or iterative reconstruction. Contrast material: OMNI 300; Contrast volume: 95 ml; Contrast route: INTRAVENOUS (IV); COMPARISON: CT abdomen pelvis w con* [id number] 12/05/2019 10:09 PM RADIATION DOSE METRICS: Total DLP (mGy-cm): 1764.72 FINDINGS: Lungs: Limited assessment of the lung bases fails to reveal evidence for active cardiopulmonary process. Liver: Heterogenous contrast enhancement of the hepatic parenchyma without visible evidence of a solid mass or cystic structure. Finding raises the potential for acute hepatitis involving primarily the right hepatic lobe, caudate lobe, and lateral segment left hepatic lobe. Mild periportal edema at the level of the ngoc hepatis. Gallbladder and bile ducts: Potential tiny 6 mm gallstone. Pancreas: Examination reveals evidence of high grade 2/5 acute pancreatitis similar to last examination of 12/05/2019. Associated moderate peripancreatic bed fat inflammatory phlegmonous response that extends into the gastric pancreatic space. Currently no organized pseudocyst formation. No visible evidence of gangrenous or hemorrhagic pancreatitis. No visible pancreatic ductal ectasia. No visible choledocholithiasis. Small unorganized fluid collection within the gastric transverse colonic space. Potential immature pseudocyst. Spleen: Spleen unremarkable. Adrenal glands: Adrenal glands unremarkable. Kidneys and ureters: Kidneys without hydronephrosis or perinephric fluid. Small stable left parapelvic cysts. No follow-up recommended. No visible nephrolithiasis. Stomach and bowel: Diverticulosis coli without visible evidence for acute diverticulitis. Nonobstructive bowel pattern. Mild reactive duodenitis. Appendix: No evidence of appendicitis. Intraperitoneal space: Small volume intraperitoneal ascites primarily located in the perihepatic and perisplenic space. No visible pneumoperitoneum. Vasculature: The abdominal aorta is nonaneurysmal. Mild arterial sclerotic disease. Lymph nodes: No generalized lymphadenopathy. Urinary bladder: Urinary bladder unremarkable. Reproductive: Status post hysterectomy. Bones/joints: No visible active or acute osseous abnormality. Facet arthrosis. Mild degenerative disease primarily the distal thoracic spine. Soft tissues: Small periumbilical ventral hernia containing fat only. Other findings: Obesity. CT/CT abdomen pelvis w con* [id number] IMPRESSION: 1. High-grade 2/5 acute pancreatitis. 2. Findings raising suspicion for hepatitis. 3. No visible pancreatic ductal ectasia. No visible choledocholithiasis. 4. Potential tiny 6 mm gallstone. 5. Mild reactive duodenitis. 6. Other nonurgent, nonemergent, chronic, and age related findings as detailed in text above. Radiation Dose CTDIVOL = (mGy): DLP = 1764.72 (mGy-cm)
[2020-07-06 16:22] LABS: Basophils % 0.2 %; Eosinophils % 0.1 %; Hematocrit 42.3 % (37.0-47.0); Hemoglobin 14.4 g/dL (11.5-15.3); Lymphocytes # 1.1 10^3/uL (0.8-4.8); Lymphocytes % 6.3 %; Mean Corpuscular Hemoglobin 37.7 pg (28.0-34.0); Mean Corpuscular Volume 110.7 fL (81-99); Mean Platelet Volume 9.2 fL (7.4-10.4); Monocytes # 0.5 10^3/uL (0.2-0.9); Monocytes % 2.9 %; Neutrophils # 15.13 10^3/uL (1.8-7.7); Nucleated Red Blood Cells % 0.1 %; Platelet Count 290 10^3/cmm (130-400); Red Blood Count 3.82 10^6/uL (4.1-5.3); Red Cell Distribution Width 21.6 % (12.1-15.1); White Blood Count 16.8 10^3/uL (4.0-10.0)
[2020-07-06] MEDS: sodium chloride 0.9% 1,000 ML 999 ML IV (16:30)
--- NOTE | 2020-07-06 16:31 | W.ED.NAVMDI ---
Documented by User: Cheo Ennis DO 07/07/20 06:48 HPI - Nausea/Vomiting/Diarrhea General: Chief complaint: Nausea/Vomiting/Diarrhea Stated complaint: N,V/ABD pain Time Seen by Provider: 07/06/20 14:04 History of Present Illness: HPI Narrative: 59-year-old female presents the emergency room with complaint of epigastric left upper quadrant pain. This began yesterday. She is not been able to keep anything down nausea and vomiting with this. Denies any fever sweats or chills she is not had any diarrhea denies any hematemesis or coffee-ground emesis. She has had episodes of pancreatitis in the past denies any drinking or trigger foods. MD elicited complaint: nausea, vomiting and abdominal pain Pertinent past history: anorexia Description of vomiting: watery Description of diarrhea: watery and semi-solid Associated nausea: Yes Associated abdominal pain: Yes Location of pain: Epigastric and LUQ Pain consistency: constant Severity: severe Quality: cramping Exacerbating factors: eating and vomiting Relieving factors: rest Associated symtoms: Reports bloating and nausea; Denies altered mental status, anxiety, change in vision, chest pain, cough, diaphoresis, decreased urine output, dizziness, dysuria, epistaxis, fatigue, fecal incontinence, fevers/chills, headache(s), anorexia, malaise, myalgias, numbness, palpitations, rash, short of breath, syncope, tenesmus, tinnitus or weakness Review of Systems Const: Denies: fatigue, malaise or diaphoresis Eyes: Denies: change in vision ENMT: Denies: tinnitus or epistaxis Card: Denies: chest pain, palpitations or syncope Resp: Denies: dyspnea, productive cough or non-productive cough GI: Reports: nausea and bloating; Denies: fecal incontinence : Denies: dysuria Skin/Breast: Denies: rash or pruritus Neuro: Denies: headache(s) or dizziness PFSH ED PFSH: Medical History Alcohol abuse Gall stones Hypothyroidism Obesity Pancreatitis Superficial thrombophlebitis Uterine cancer Vaginal bleeding Surgical History H/O adenoidectomy H/O: hysterectomy History of dilatation and curettage History of tonsillectomy Family History Other Dementia Social History Smoking and tobacco status: former smoker Alcohol intake: current Desire information about alcohol rehabilitation?: No Counseling given: Yes Last alcohol use date: 12/04/19 Physical Exam Const: COMMON NORMALS: no acute distress EXAM LIMITATIONS: no altered mental status GENERAL APPEARANCE: cooperative and comfortable ORIENTATION/CONSCIOUSNESS: Yes awake, Yes oriented to person, Yes oriented to place and Yes oriented to time HENMT: COMMON NORMALS: normocephalic, atraumatic and hearing grossly normal bilaterally HEAD & SCALP: normocephalic and atraumatic Neck/C-Spine: COMMON NORMALS: no JVD Resp: COMMON NORMALS: normal respiratory effort, No retractions, No use of accessory muscles and clear to auscultation bilaterally AUSCULTATION: clear to auscultation bilaterally Cardio: COMMON NORMALS: no JVD, regular rate, regular rhythm and No murmurs present (Cardio) RATE: regular rate RHYTHM: regular rhythm GI: COMMON NORMALS: Soft to palpation and No hepatosplenomegaly present AUSCULTATION: Yes normoactive bowel sounds PALPATION: Yes Soft to palpation, Yes Tenderness to palpation present (GI) (Epigastric) Details: LUQ, No Guarding due to palpation present (GI) and Yes No hepatosplenomegaly present Extremity: COMMON NORMALS: normal to inspection, capillary refill normal, no clubbing, cyanosis or edema, no calf tenderness and no pedal edema Neuro: SENSORIUM/ORIENTATION: Yes oriented to person, Yes oriented to place and Yes oriented to time Skin: COMMON NORMALS: no rashes or lesions noted GENERAL SKIN EXAM: no rashes or lesions noted Course Vital Signs: Vital signs: Vital Signs Temperature 98.4 F 07/07/20 03:37 Pulse Rate 79 07/07/20 03:37 Respiratory Rate 18 07/07/20 03:37 Blood Pressure 122/76 07/07/20 03:37 Pulse Oximetry 95 07/07/20 03:37 MDM - Nausea/Vomiting/Diarrhea MDM Narrative: Medical decision making narrative: Care turned over to Dr. De Paz at change of shift see his notes for final diagnosis and disposition. Lab Data: Labs: Lab Results 07/06/20 07/06/20 07/06/20 Range/Units 16:15 16:15 16:15 WBC 16.8 H (4.0-10.0) 10^3/ uL RBC 3.82 L (4.1-5.3) 10^6/u L Hgb 14.4 (11.5-15.3) g/dL Hct 42.3 (37.0-47.0) % MCV 110.7 H (81-99) fL MCH 37.7 H (28.0-34.0) pg MCHC 34.0 (30.0-36.0) g/dL RDW 21.6 H (12.1-15.1) % Plt Count 290 (130-400) 10^3/c mm MPV 9.2 (7.4-10.4) fL Neut % (Auto) 90.0 % Lymph % (Auto) 6.3 % [place] % (Auto) 2.9 % Eos % (Auto) 0.1 % Baso % (Auto) 0.2 % Neut # (Auto) 15.13 H (1.8-7.7) 10^3/u L Lymph # (Auto) 1.1 (0.8-4.8) 10^3/u L [place] # (Auto) 0.5 (0.2-0.9) 10^3/u L Eos # (Auto) 0.0 (0.0-0.8) 10^3/u L Baso # (Auto) 0.0 (0.0-0.1) 10^3/u L Nucleated RBC % (a uto) 0.1 % Nucleated RBCs # 0.0 /100WBC Sodium 140 (136-145) mmol/L Potassium 4.3 (3.5-5.1) mmol/L Chloride 104 (98-107) mmol/L Carbon Dioxide 27 (22-29) mmol/L Anion Gap 13.3 (5-19) BUN 17 (8-23) mg/dL Creatinine 0.6 (0.5-0.9) mg/dL GFR Calculation 101.6 (90-130) mL/min Glucose 126 H (65-115) mg/dL Calculated Osmolal ity 293 (285-295) mOsm/k g Calcium 9.1 (8.5-10.5) mg/dL Total Bilirubin 1.9 H (0.15-1.2) mg/dL AST 23 (0-32) U/L ALT 12 (0-33) U/L Alkaline Phosphata se 112 H (35-105) IU/L Total Protein 6.9 (6.6-8.7) g/dL Albumin 3.6 (3.5-5.2) g/dL Globulin 3.3 (1.3-4.6) g/dL Lipase 825 H (13-60) U/L Procalcitonin 0.05 (0-0.5) ng/mL Discharge Plan Discharge Patient Disposition: Admitted As Inpatient Admit Provider: Elton Giang Clinical Impression: Pancreatitis Condition: Stable Coding Level of Care Code ED Hardware Installer for Chg Fwd Exam Comprehensive Documented by User: Clarice De Paz MD 07/06/20 18:11 HPI - Nausea/Vomiting/Diarrhea General: Chief complaint: Nausea/Vomiting/Diarrhea Stated complaint: N,V/ABD pain Time Seen by Provider: 07/06/20 14:04 History of Present Illness: Associated symtoms: Denies chest pain, dysuria or headache(s) Review of Systems Const: Denies: fever(s), chills, body aches or change in appetite Eyes: Denies: blurry vision or eye discomfort ENMT: Denies: throat pain or dental pain Card: Denies: chest pain Resp: Denies: dyspnea GI: Reports: abdominal pain : Denies: dysuria Musc: Denies: neck pain or back pain Skin/Breast: Denies: rash Neuro: Denies: headache(s) Psych: Denies: depression [place]/Lymph: Denies: easy bruising All/Imm: Denies: urticaria PFSH ED PFSH: Medical History Alcohol abuse Gall stones Hypothyroidism Obesity Pancreatitis Superficial thrombophlebitis Uterine cancer Vaginal bleeding Surgical History H/O adenoidectomy H/O: hysterectomy History of dilatation and curettage History of tonsillectomy Family History Other Dementia Social History Smoking and tobacco status: former smoker Alcohol intake: current Desire information about alcohol rehabilitation?: No Counseling given: Yes Last alcohol use date: 12/04/19 Physical Exam Const: COMMON NORMALS: no acute distress, patient oriented x3 and healthy appearing HENMT: COMMON NORMALS: normocephalic and atraumatic HEAD & SCALP: normocephalic and atraumatic Eye: COMMON NORMALS: Equal, round and reactive pupils present and EOMs intact bilaterally PUPIL: Yes Equal, round and reactive pupils present Neck/C-Spine: COMMON NORMALS: full ROM and supple Chest: COMMONS NORMALS: normal inspection of the chest and normal palpation of entire chest wall Resp: COMMON NORMALS: normal respiratory effort, No retractions, No use of accessory muscles and clear to auscultation bilaterally AUSCULTATION: clear to auscultation bilaterally Cardio: COMMON NORMALS: regular rate, regular rhythm and No murmurs present (Cardio) RATE: regular rate RHYTHM: regular rhythm GI: COMMON NORMALS: Normal to inspection, nondistended, normoactive bowel sounds present, Soft to palpation and no masses PALPATION: Yes Soft to palpation and Yes Tenderness to palpation present (GI) (epigastric) Extremity: COMMON NORMALS: normal to inspection and full ROM Neuro: COMMON NORMALS: patient oriented x3, moves all extremities and no focal motor deficits Psych: COMMON NORMALS: mental status grossly normal, Normal thought process present and cooperative THOUGHT PROCESS: Normal thought process present Skin: COMMON NORMALS: no rashes or lesions noted and no wounds GENERAL SKIN EXAM: no rashes or lesions noted Course Vital Signs: Vital signs: Vital Signs Temperature 98.4 F 07/07/20 03:37 Pulse Rate 79 07/07/20 03:37 Respiratory Rate 18 07/07/20 03:37 Blood Pressure 122/76 07/07/20 03:37 Pulse Oximetry 95 07/07/20 03:37 MDM - Nausea/Vomiting/Diarrhea MDM Narrative: Medical decision making narrative: Patient presents with pancreatitis. Lipase is elevated and she has CT findings as well. She is tender pain is improved though. I spoke to hospitalist and will admit at this time. Lab Data: Labs: Lab Results 07/06/20 07/06/20 07/06/20 Range/Units 16:15 16:15 16:15 WBC 16.8 H (4.0-10.0) 10^3/ uL RBC 3.82 L (4.1-5.3) 10^6/u L Hgb 14.4 (11.5-15.3) g/dL Hct 42.3 (37.0-47.0) % MCV 110.7 H (81-99) fL MCH 37.7 H (28.0-34.0) pg MCHC 34.0 (30.0-36.0) g/dL RDW 21.6 H (12.1-15.1) % Plt Count 290 (130-400) 10^3/c mm MPV 9.2 (7.4-10.4) fL Neut % (Auto) 90.0 % Lymph % (Auto) 6.3 % [place] % (Auto) 2.9 % Eos % (Auto) 0.1 % Baso % (Auto) 0.2 % Neut # (Auto) 15.13 H (1.8-7.7) 10^3/u L Lymph # (Auto) 1.1 (0.8-4.8) 10^3/u L [place] # (Auto) 0.5 (0.2-0.9) 10^3/u L Eos # (Auto) 0.0 (0.0-0.8) 10^3/u L Baso # (Auto) 0.0 (0.0-0.1) 10^3/u L Nucleated RBC % (a uto) 0.1 % Nucleated RBCs # 0.0 /100WBC Sodium 140 (136-145) mmol/L Potassium 4.3 (3.5-5.1) mmol/L Chloride 104 (98-107) mmol/L Carbon Dioxide 27 (22-29) mmol/L Anion Gap 13.3 (5-19) BUN 17 (8-23) mg/dL Creatinine 0.6 (0.5-0.9) mg/dL GFR Calculation 101.6 (90-130) mL/min Glucose 126 H (65-115) mg/dL Calculated Osmolal ity 293 (285-295) mOsm/k g Calcium 9.1 (8.5-10.5) mg/dL Total Bilirubin 1.9 H (0.15-1.2) mg/dL AST 23 (0-32) U/L ALT 12 (0-33) U/L Alkaline Phosphata se 112 H (35-105) IU/L Total Protein 6.9 (6.6-8.7) g/dL Albumin 3.6 (3.5-5.2) g/dL Globulin 3.3 (1.3-4.6) g/dL Lipase 825 H (13-60) U/L Procalcitonin 0.05 (0-0.5) ng/mL Discharge Plan Discharge Patient Disposition: Admitted As Inpatient Admit Provider: Elton Giang Clinical Impression: Pancreatitis Condition: Stable Coding Level of Care Code ED Hardware Installer for Chg Fwd Exam Comprehensive
[2020-07-06 16:32] VITALS: BP 126/104; PULSE 75; RESP 16; O2SAT 99
[2020-07-06 17:11] LABS: Alanine Aminotransferase 12 U/L (0-33); Albumin Level 3.6 g/dL (3.5-5.2); Alkaline Phosphatase 112 IU/L (35-105); Anion Gap 13.3 (5-19); Aspartate Amino Transferase 23 U/L (0-32); Blood Urea Nitrogen 17 mg/dL (8-23); Calcium 9.1 mg/dL (8.5-10.5); Carbon Dioxide 27 mmol/L (22-29); Chloride 104 mmol/L (98-107); Globulin 3.3 g/dL (1.3-4.6); Glomerular Filtration Rate 101.6 mL/min (90-130); Glucose 126 mg/dL (65-115); Osmolality Calculated 293 mOsm/kg (285-295); Potassium 4.3 mmol/L (3.5-5.1); Sodium 140 mmol/L (136-145); Total Bilirubin 1.9 mg/dL (0.15-1.2); Total Protein 6.9 g/dL (6.6-8.7)
[2020-07-06] MEDS: iohexol 300 mg/mL 100 mL Btl IV (17:25)
[2020-07-06 17:32] LABS: Lipase 825 U/L (13-60)
[2020-07-06] MEDS: morphine 4 mg/mL SDV 1 mL IVP (17:40)
[2020-07-06] MEDS: ondansetron 2 mg/ML SDV 2 mL 4 MG IVP (17:40)
--- NOTE | 2020-07-06 18:35 | XRR_ITS ---
PROCEDURE INFORMATION: Exam: XR Chest, 1 View Exam date and time: 07/06/2020 7:01 PM Age: 59 years old Clinical indication: Patient HX: N/v, abd pain, cough TECHNIQUE: Imaging protocol: XR of the chest Views: 1 view. COMPARISON: CR XR chest 1V portable [id number] 12/05/2019 10:16 PM FINDINGS: Lungs: Unremarkable. No consolidation. Pleural space: Unremarkable. No pleural effusion. No pneumothorax. Heart/Mediastinum: Heart size is stable. Vasculature: Tortuous thoracic aorta. Bones/joints: Degenerative change of the spine. XR/XR chest 1V portable [id number] IMPRESSION: 1. No acute cardiopulmonary process.
--- NOTE | 2020-07-06 18:41 | PM.HP ---
Providers/Chief Complaint Admitting Physician: Elton Giang Primary Care Provider: RANCHO Quintana Chief Complaint: N,V/ABD pain History of Present Illness Nya Mayfield is a 59 year old female with past medical history of asthma, 2 episodes of pancreatitis previously, last 1 in November, regular alcohol who is presenting with abdominal pain. Abdominal pain is in upper abdomen described as sharp and severe. Started Monday. She thinks it is related to alcoholic in previous episodes. Currently she feels better. She had some nausea. No fever or chills. No chest pain, shortness of breath, or palpitations. Reports some cough. The patient reports drinking regularly. However she also indicates that can go several days without developing any withdrawal symptoms. 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 Currently her anticoagulation is discontinued by her primary care physician. However she also is concerned about swelling in her lower extremities. Review of Systems General: Reports: 10 or more systems reviewed and unremarkable except in HPI and below Medications/Allergies Home Medications Medication Instructions Recorded Confirmed Last Taken Type albuterol sulfate 2 puff INHALATION Q4H PRN 09/19/19 07/06/20 Unknown History levothyroxine [Euthyrox] 125 mcg PO DAILY@0100 12/05/19 07/06/20 07/06/20 History aspirin [Aspir-81] 81 mg PO DAILY 07/06/20 07/06/20 07/04/20 History Allergies Allergy/AdvReac Type Severity Reaction Status Date / Time codeine Allergy ALGY-Hives Verified 07/06/20 16:49 PFSH Acute PFSH: Medical History (Updated 07/06/20 @ 18:01 by Clarice De Paz MD) Alcohol abuse Gall stones Hypothyroidism Obesity Pancreatitis Superficial thrombophlebitis Uterine cancer Vaginal bleeding Surgical History (Updated 12/06/19 @ 05:03 by Mahi Dumont MD) H/O adenoidectomy H/O: hysterectomy History of dilatation and curettage History of tonsillectomy Family History (Updated 12/05/19 @ 21:21 by Mahi Dumotn MD) Other Dementia Social History (Updated 12/05/19 @ 21:21 by Mahi Dumont MD) Smoking and tobacco status: former smoker Alcohol intake: current Desire information about alcohol rehabilitation?: No Counseling given: Yes Last alcohol use date: 12/04/19 Vitals/I&O/Wt Last Vital Signs Temp 98.2 F 07/06/20 11:29 Pulse 75 07/06/20 16:32 Resp 16 07/06/20 16:32 BP 126/104 07/06/20 16:32 Pulse Ox 99 07/06/20 16:32 Weight last 48 hrs Weight 103.419 kg Physical Exam Narrative: EXAM NARRATIVE: The patient is awake alert and oriented. No acute distress. Mood and affect are appropriate. Responses are adequate. Skin is warm and dry. Moist mucous membranes. Eyes [place], extraocular muscles are intact. No icterus Normal speech. No facial asymmetry. Neck supple. No JVD Lungs clear. No respiratory distress. Heart S1, S2, regular Abdomen is obese, nontender currently, soft, bowel sounds are present Extremities bilateral edema and swelling is present worse on the left side. She states that it is chronic related to previous trauma and surgery. No peripheral cyanosis No focal muscle weakness or sensory loss. Data : 07/06/20 16:15 07/06/20 16:15 Other Labs: Laboratory Results WBC 16.8 10^3/uL (4.0-10.0) H 07/06/20 16:15 RBC 3.82 10^6/uL (4.1-5.3) L 07/06/20 16:15 Hgb 14.4 g/dL (11.5-15.3) 07/06/20 16:15 Hct 42.3 % (37.0-47.0) 07/06/20 16:15 MCV 110.7 fL (81-99) H 07/06/20 16:15 MCH 37.7 pg (28.0-34.0) H 07/06/20 16:15 MCHC 34.0 g/dL (30.0-36.0) 07/06/20 16:15 RDW 21.6 % (12.1-15.1) H 07/06/20 16:15 Plt Count 290 10^3/cmm (130-400) 07/06/20 16:15 MPV 9.2 fL (7.4-10.4) 07/06/20 16:15 Neut % (Auto) 90.0 % 07/06/20 16:15 Lymph % (Auto) 6.3 % 07/06/20 16:15 [place] % (Auto) 2.9 % 07/06/20 16:15 Eos % (Auto) 0.1 % 07/06/20 16:15 Baso % (Auto) 0.2 % 07/06/20 16:15 Neut # (Auto) 15.13 10^3/uL (1.8-7.7) H 07/06/20 16:15 Lymph # (Auto) 1.1 10^3/uL (0.8-4.8) 07/06/20 16:15 [place] # (Auto) 0.5 10^3/uL (0.2-0.9) 07/06/20 16:15 Eos # (Auto) 0.0 10^3/uL (0.0-0.8) 07/06/20 16:15 Baso # (Auto) 0.0 10^3/uL (0.0-0.1) 07/06/20 16:15 Nucleated RBC % (auto) 0.1 % 07/06/20 16:15 Nucleated RBCs # 0.0 /100WBC 07/06/20 16:15 Sodium 140 mmol/L (136-145) 07/06/20 16:15 Potassium 4.3 mmol/L (3.5-5.1) 07/06/20 16:15 Chloride 104 mmol/L (98-107) 07/06/20 16:15 Carbon Dioxide 27 mmol/L (22-29) 07/06/20 16:15 Anion Gap 13.3 (5-19) 07/06/20 16:15 BUN 17 mg/dL (8-23) 07/06/20 16:15 Creatinine 0.6 mg/dL (0.5-0.9) 07/06/20 16:15 GFR Calculation 101.6 mL/min (90-130) 07/06/20 16:15 Glucose 126 mg/dL (65-115) H 07/06/20 16:15 Calculated Osmolality 293 mOsm/kg (285-295) 07/06/20 16:15 Calcium 9.1 mg/dL (8.5-10.5) 07/06/20 16:15 Total Bilirubin 1.9 mg/dL (0.15-1.2) H 07/06/20 16:15 AST 23 U/L (0-32) 07/06/20 16:15 ALT 12 U/L (0-33) 07/06/20 16:15 Alkaline Phosphatase 112 IU/L (35-105) H 07/06/20 16:15 Total Protein 6.9 g/dL (6.6-8.7) 07/06/20 16:15 Albumin 3.6 g/dL (3.5-5.2) 07/06/20 16:15 Globulin 3.3 g/dL (1.3-4.6) 07/06/20 16:15 Lipase 825 U/L (13-60) H 07/06/20 16:15 Impressions Abdomen Ultrasound 07/06/20 11:47 IMPRESSION: 1. Significantly limited evaluation of the abdominal organs due to body habitus. 2. Chronic hepatocellular disease, probably hepatic steatosis. The liver is poorly visualized. 3. Cholelithiasis. No evidence for acute cholecystitis or bile duct dilatation. 4. Pancreas is not visualized. 5. Small amount of ascites. Abdomen/Pelvis CT 07/06/20 16:15 IMPRESSION: 1. High-grade 2/5 acute pancreatitis. 2. Findings raising suspicion for hepatitis. 3. No visible pancreatic ductal ectasia. No visible choledocholithiasis. 4. Potential tiny 6 mm gallstone. 5. Mild reactive duodenitis. 6. Other nonurgent, nonemergent, chronic, and age related findings as detailed in text above. Radiation Dose CTDIVOL = (mGy): DLP = 1764.72 (mGy-cm) ADDENDUM: 07/06/20 1815 THIS REPORT CONTAINS FINDINGS THAT MAY BE CRITICAL TO PATIENT CARE. The findings were verbally communicated via telephone conference with Dr. De Paz at 6:02 PM FOREST LANDSCAPE ECOLOGY PROFESSOR on 07/06/2020. The findings were acknowledged and understood. Radiation Dose CTDIVOL = (mGy): DLP = 1764.72 (mGy-cm) A&P Additional A&P Information Acute pancreatitis probably secondary to alcohol. Imaging studies did not reveal any convincing evidence of cholelithiasis. We will check her triglycerides in the morning. N.p.o. for now. We will continue IV fluids and pain medications as needed. Fatty liver and alcoholic hepatitis. LFTs are not elevated. Will defer additional testing to the primary care team. EtOH. We will start her on CIWA protocol and vitamin replacement therapy. Counseling is provided. Leukocytosis. Could be secondary to above. We will check her procalcitonin level. We will check her chest x-ray and UA. Will consider antibiotics if we find anything suspicious for bacterial infection. We will recheck CBC in the morning. DVT prophylaxis. Lovenox. Swelling in the lower extremities. Will check Doppler ultrasound to rule out DVT. Asthma. Currently well controlled. CODE STATUS. The patient wants no chest compressions or electrical shock. However she is open for intubation and mechanical ventilation if necessary. The plan of care was discussed with the patient. She verbalized understanding and agreement. Attestations Medical Necessity Statement*: Based on my assessment of her current condition the patient probably will require more than 2 midnights in the hospital. Coding Level of Care Code Acute Proposal Consultant for Marshal Islas
[2020-07-06 18:42] VITALS: BP 141/98; PULSE 75; RESP 18; O2SAT 97
[2020-07-06 19:30] VITALS: BP 134/84; PULSE 73; RESP 18; TEMP 37.1; O2SAT 97
[2020-07-06 20:42] LABS: Bilirubin Urine Neg (Negative); Blood Urine Neg (Negative); Glucose Urine UA Norm (Normal); Ketones Urine Negative (Negative); Leukocyte Esterase Urine Trace (Negative); Nitrate Urine Positive (Negative); Protein Urine Trace (Negative); Urine Appearance Hazy (CLEAR); Urine Color Amber (Yellow); Urobilinogen Urine 4 mg/dL (Negative); pH Urine 5 (5-7)
[2020-07-06 20:53] LABS: Bacteria Urine 1+ /hpf; Mucus Urine 2+ /hpf; RBC Urine 0-4 /hpf (0-2); Squamous Epithelial Cell Urine 0-4 /hpf (0-5); WBC Urine 0-4 /hpf (0-5)
[2020-07-06 21:36] LABS: Procalcitonin 0.05 ng/mL (0-0.5)
[2020-07-06] MEDS: enoxaparin 40 mg/0.4 mL Syringe SUBCUT (21:49)
[2020-07-06 21:50] VITALS: RESP 18
[2020-07-06] MEDS: morphine 4 mg/mL SDV 1 mL 2 MG IVP (21:50)
[2020-07-06] MEDS: lactated ringers 1,000 ML 125 ML IV (21:50)
[2020-07-06] MEDS: efferdent effervescent 1 EACH DENTAL (22:47)
[2020-07-06 23:51] VITALS: BP 117/79; PULSE 89; RESP 18; TEMP 36.9; O2SAT 96
[2020-07-07] VITALS (8 sets, daily range): BP systolic 102–122; BP diastolic 44–83; PULSE 71–98; RESP 16–18; TEMP 36.7–37.4; O2SAT 94–96
[2020-07-07] MEDS: levothyroxine 125 mcg Tablet PO (02:19)
--- NOTE | 2020-07-07 07:00 | USCV_ITS ---
Nya Mayfield Age: 59 Gender: F : 1960 Exam Date: 07/07/2020 07:02 Ordering Phys: Elton Giang MD Technologist: Joelle Renteria Exam Location: [facility] [place]: SWELLING HISTORY: SWELLING PROCEDURES: Venous duplex imaging was performed in bilateral lower extremities. The following venous structures were evaluated: common femoral vein, profunda vein, proximal portion of the greater saphenous vein, superficial femoral vein, and the popliteal vein. In addition, the posterior tibial and peroneal trunk were evaluated. Serial compression, augmentation maneuvers, and spectral Doppler flow evaluation were performed. FINDINGS: Normal 2-D Doppler and augmentation and compressibility throughout the lower extremity venous structures. Additional imaging through the proximal calf veins also reveals no thrombus. Limited evaluation of the left greater saphenous vein demonstrates no compressability. CONCLUSIONS Suspect left GSV thrombophlebitis. No DVT. Dr. Ashanti Aldana DO (Electronically Signed) Final Date: 07 July 2020 09:01 S
[2020-07-07] MEDS: morphine 4 mg/mL SDV 1 mL 2 MG IVP (08:19)
[2020-07-07] MEDS: lactated ringers 1,000 ML 125 ML IV (08:21)
[2020-07-07 08:23] LABS: Basophils % 0.2 %; Eosinophils # 0.3 10^3/uL (0.0-0.8); Eosinophils % 1.9 %; Hematocrit 34.8 % (37.0-47.0); Hemoglobin 11.5 g/dL (11.5-15.3); Lymphocytes # 1.2 10^3/uL (0.8-4.8); Lymphocytes % 9.1 %; Mean Corpuscular Hemoglobin 36.5 pg (28.0-34.0); Mean Corpuscular Volume 110.5 fL (81-99); Mean Platelet Volume 9.6 fL (7.4-10.4); Monocytes # 0.5 10^3/uL (0.2-0.9); Monocytes % 3.4 %; Neutrophils # 11.14 10^3/uL (1.8-7.7); Neutrophils % 84.9 %; Nucleated Red Blood Cells % 0 %; Platelet Count 229 10^3/cmm (130-400); Red Blood Count 3.15 10^6/uL (4.1-5.3); Red Cell Distribution Width 20.9 % (12.1-15.1); White Blood Count 13.1 10^3/uL (4.0-10.0)
--- NOTE | 2020-07-07 08:57 | PC.CHAP ---
Pastoral Care Encounter/Spiritual Assessment Type of Contact [] Declined spring coiler hand visit [] Patient/Family/Request visit [] Outpatient visit [] Follow-up visit [] Physician referral [] Code/Alert [x] Routine visit [] Staff referral [] Actively dying [] Patient sleeping [] Family support [] [] Out of room [] Palliative care [] [] Receiving care in room [] Pre-surgical visit [] Trauma [] Long length of stay [] ICU visit [] Other: Relational/Emotional Strength [x] Patient feels connected with others/family/visitors/staff [] Distress [] Loneliness/isolation [] Abandonment Spirituality of Patient [] Person of [place] [] Attends Christian of their [place] [] Believes in Prayer [] Reads Bible or Gnosticism materials [] There are Spiritual issues to be addressed Supply Manager Interventions [x] Prayer [] Active listening [] Non-anxious presence [] Spiritual/emotional support [] Crisis/trauma care [] Spiritual counseling [] Bereavement support [] Provided bereavement packet [] Provided Bible/devotional materials [] Provided toy/stuffed animal, coloring book to patient or family member [] Provided Communion [] Anointing/[place] [] Salvation [x] Completed spiritual assessment [] Other: Impact on Illness or Injury [] Angry [] Fearful [] Anxious [] Often cries [] Exhaustion [] Unable to work [] Unable to attend judaism [] Unable to walk/stand [] Unable to read [] Unable to drive [] Unable to eat/drink [] Unable to sleep [] Unable to be with family [] Patient intubated [] Other: Summary patient feeling much better Time spent with patient 10 min
[2020-07-07 08:58] LABS: Alanine Aminotransferase 8 U/L (0-33); Albumin Level 2.8 g/dL (3.5-5.2); Alkaline Phosphatase 78 IU/L (35-105); Anion Gap 10.4 (5-19); Aspartate Amino Transferase 16 U/L (0-32); Blood Urea Nitrogen 12 mg/dL (8-23); Calcium 8.2 mg/dL (8.5-10.5); Carbon Dioxide 26 mmol/L (22-29); Chloride 102 mmol/L (98-107); Chol HDL Ratio 3.44 mg/dL (0.0-4.40); Cholesterol 117 mg/dL (0-200); Globulin 2.3 g/dL (1.3-4.6); Glomerular Filtration Rate 125.4 mL/min (90-130); Glucose 92 mg/dL (65-115); HDL Cholesterol 34 mg/dL (60-100); LDL Cholesterol Calculated 68 mg/dL (50-129); Lipase 205 U/L (13-60); Magnesium 1.8 mg/dL (1.7-2.3); Osmolality Calculated 279 mOsm/kg (285-295); Potassium 3.4 mmol/L (3.5-5.1); Sodium 135 mmol/L (136-145); Total Bilirubin 1.7 mg/dL (0.15-1.2); Total Protein 5.1 g/dL (6.6-8.7); Triglycerides 77 mg/dL (0-150)
--- NOTE | 2020-07-07 14:51 | PM.PN ---
Subjective Subjective: Interval history: Patient reports feeling better today. Abdominal pain is minimal. Denies nausea or vomiting. Denies diarrhea. No chills. Denies chest pain, shortness of breath, cough, palpitations. Medications: Reviewed: Yes Medication Review Details: Generic Name Dose Route Start Last Admin Trade Name Danish PRN Reason Stop Dose Admin Aspirin 81 mg 07/07/20 09:00 07/07/20 08:23 Aspirin 81 Mg Ec Tablet PO Not Given DAILY [facility] Folic Acid 1 mg 07/07/20 09:00 07/07/20 08:23 Folic Acid 1 Mg Tablet PO Not Given DAILY [facility] Levothyroxine Sodi um 125 mcg 07/07/20 01:00 07/07/20 02:19 Levothyroxine 12 5 Mcg Tablet PO 125 mcg DAILY@0100 [facility] Administration Morphine Sulfate 2 mg 07/06/20 18:35 07/07/20 08:19 Morphine 4 Mg/Ml Sdv 1 Ml IVP 2 mg Q4H PRN Administration SEVERE PAIN Multivitamins Ther apeutic 1 tab 07/07/20 09:00 07/07/20 08:23 Multivitamin The rapeutic Tablet PO Not Given DAILY [facility] Thiamine Mononitra te 100 mg 07/07/20 09:00 07/07/20 08:23 Thiamine 100 Mg Tablet PO Not Given DAILY [facility] Vitals/I&O/Wt Last Vital Signs Temp 99.3 F 07/07/20 11:47 Pulse 98 07/07/20 11:47 Resp 16 07/07/20 11:47 BP 120/83 07/07/20 11:47 Pulse Ox 94 07/07/20 11:47 07/06/20 07/07/20 07/07/20 22:59 06:59 14:59 Intake Total 1000 / 1000 56.25 / 56.25 Output Total 0 / 0 850 / 850 Balance 0 / 0 150 / 150 56.25 / 56.25 Weight last 48 hrs Weight 103.419 kg Physical Exam Narrative: EXAM NARRATIVE: The patient is awake alert and oriented. No acute distress. Mood and affect are appropriate. Responses are adequate. Skin is warm and dry. Moist mucous membranes. Eyes Iqra, extraocular muscles are intact. No icterus Normal speech. No facial asymmetry. Neck supple. No JVD Lungs clear. No respiratory distress. Heart S1, S2, regular Abdomen is obese, nontender currently, soft, bowel sounds are present Extremities bilateral edema and swelling is present worse on the left side. She states that it is chronic related to previous trauma and surgery. No peripheral cyanosis No focal muscle weakness or sensory loss. Data : 07/07/20 07:59 07/07/20 07:59 A&P Additional A&P Information Acute pancreatitis probably secondary to alcohol. Imaging studies did not reveal any convincing evidence of cholelithiasis. Triglycerides and calcium are not elevated. Will start with clear liquid diet and advance it today. We will stop the IV fluids. We will continue pain medications as needed. Fatty liver and alcoholic hepatitis. LFTs are not elevated. Will defer additional testing to the primary care team. EtOH. No evidence of withdrawals. Continue CIWA protocol and vitamin replacement therapy. Counseling is provided. Leukocytosis. Could be secondary to above. Normal procalcitonin level. The patient has thrombophlebitis on Doppler ultrasound report. This could be the reason of her fever and leukocytosis. Will increase the dose of Lovenox and order ibuprofen. We will continue monitoring CBC. Doubt she has UTI. No antibiotics for now. DVT prophylaxis. Lovenox. Swelling in the lower extremities. Probably related to thrombophlebitis. Management as above. Asthma. Currently well controlled. CODE STATUS. The patient wants no chest compressions or electrical shock. However she is open for intubation and mechanical ventilation if necessary. The plan of care was discussed with the patient. She verbalized understanding and agreement. Attestations Medical Necessity Statement*: The patient is recovering from pancreatitis. Still requires pain medications. Requires blood thinners for thrombophlebitis. Coding Level of Care Code Acute Dental Chairside Assistant for Marshal Islas
[2020-07-07] MEDS: ibuprofen 200 mg Tablet 400 MG PO (16:38)
[2020-07-07] MEDS: potassium chloride ER 20 mEq Tablet 40 MEQ PO (16:38)
[2020-07-07] MEDS: enoxaparin 40 mg/0.4 mL Syringe SUBCUT (16:39)
[2020-07-07] MEDS: magnesium oxide 400 mg tablet PO (17:18)
[2020-07-08] VITALS (7 sets, daily range): BP systolic 111–119; BP diastolic 69–79; PULSE 66–81; RESP 17–18; TEMP 36.4–37.4; O2SAT 93–96
[2020-07-08] MEDS: levothyroxine 125 mcg Tablet PO (02:04)
[2020-07-08] MEDS: ibuprofen 200 mg Tablet 400 MG PO (02:04)
[2020-07-08] MEDS: enoxaparin 40 mg/0.4 mL Syringe SUBCUT (02:05)
[2020-07-08 07:09] LABS: Basophils # 0.1 10^3/uL (0.0-0.1); Basophils % 0.5 %; Eosinophils # 0.5 10^3/uL (0.0-0.8); Eosinophils % 3.9 %; Hematocrit 32.4 % (37.0-47.0); Hemoglobin 10.6 g/dL (11.5-15.3); Lymphocytes # 1.5 10^3/uL (0.8-4.8); Lymphocytes % 13.3 %; Mean Corpuscular HGB Conc 32.7 g/dL (30.0-36.0); Mean Corpuscular Hemoglobin 36.7 pg (28.0-34.0); Mean Corpuscular Volume 112.1 fL (81-99); Mean Platelet Volume 9.6 fL (7.4-10.4); Monocytes # 0.5 10^3/uL (0.2-0.9); Monocytes % 3.9 %; Neutrophils # 9.06 10^3/uL (1.8-7.7); Neutrophils % 77.9 %; Nucleated Red Blood Cells % 0 %; Platelet Count 221 10^3/cmm (130-400); Red Blood Count 2.89 10^6/uL (4.1-5.3); Red Cell Distribution Width 20.5 % (12.1-15.1); White Blood Count 11.6 10^3/uL (4.0-10.0)
[2020-07-08 07:37] LABS: Alanine Aminotransferase 9 U/L (0-33); Albumin Level 2.8 g/dL (3.5-5.2); Alkaline Phosphatase 98 IU/L (35-105); Anion Gap 9.7 (5-19); Aspartate Amino Transferase 19 U/L (0-32); Blood Urea Nitrogen 12 mg/dL (8-23); Calcium 8.1 mg/dL (8.5-10.5); Carbon Dioxide 27 mmol/L (22-29); Chloride 104 mmol/L (98-107); Globulin 2.5 g/dL (1.3-4.6); Glomerular Filtration Rate 125.4 mL/min (90-130); Glucose 81 mg/dL (65-115); Lipase 65 U/L (13-60); Magnesium 1.9 mg/dL (1.7-2.3); Osmolality Calculated 283 mOsm/kg (285-295); Potassium 3.7 mmol/L (3.5-5.1); Sodium 137 mmol/L (136-145); Total Bilirubin 1.7 mg/dL (0.15-1.2); Total Protein 5.3 g/dL (6.6-8.7)
[2020-07-08] MEDS: magnesium oxide 400 mg tablet PO (08:17)
[2020-07-08] MEDS: aspirin 81 mg EC Tablet PO (08:17)
[2020-07-08] MEDS: multivitamin therapeutic Tablet 1 TAB PO (08:17)
[2020-07-08] MEDS: thiamine 100 mg Tablet PO (08:17)
[2020-07-08] MEDS: folic acid 1 mg Tablet PO (08:17)
--- NOTE | 2020-07-08 11:48 | P.DS_ITS ---
Discharge Providers Date of Admission: 07/06/20 17:45 Date of Discharge: July 08, 2020 Attending Provider at Admission: Elton Giang Attending Provider at Discharge: Elton Giang Primary Care Provider: RANCHO Quintana Reason for Visit Reason for Visit: N,V/ABD pain Hospital Course Hospital Course Discharge diagnoses and problem list Acute pancreatitis probably secondary to alcohol. Imaging studies did not reveal any convincing evidence of cholelithiasis. Triglycerides and calcium are not elevated. Currently resolving. Doing well with the diet. Ready for discharge. Denies any active complaints today. No abdominal pain. No nausea or vomiting. No fever or chills. No pain in the legs. She is instructed to come back to emergency room if she develops any new symptoms. She verbalized understanding and agreement. Fatty liver and alcoholic hepatitis. LFTs are not elevated. Will defer additional testing to the primary care team. The patient was informed about changes in her liver. She received alcohol cessation counseling from [place]. EtOH. No evidence of withdrawals. Continue vitamins. counseling is provided. Thrombophlebitis, superficial. Improving quickly with ibuprofen. She is instructed to continue this treatment and see her doctor within the next several days. She has been previously on blood thinners for management of thrombophlebitis. Her doctor can reassess and consider anticoagulation. DVT prophylaxis. Received Lovenox. Asthma. Currently well controlled. Physical Exam Narrative: EXAM NARRATIVE: The patient is awake alert and oriented. No acute distress. Mood and affect are appropriate. Responses are adequate. Skin is warm and dry. Moist mucous membranes. Eyes Iqra, extraocular muscles are intact. No icterus Normal speech. No facial asymmetry. Neck supple. No JVD Lungs clear. No respiratory distress. Heart S1, S2, regular Abdomen is obese, nontender currently, soft, bowel sounds are present Extremities bilateral edema and swelling is present worse on the left side. She states that it is chronic related to previous trauma and surgery. No hyperemia or tenderness. No peripheral cyanosis. No focal muscle weakness or sensory loss. Discharge Data Data Completed and Pending: Completed Studies During Hospitalization Category Date Time Status CT abdomen pelvis w con* [id number] Stat Cat Scan 07/06/20 16:15 Completed XR chest 1V ngoc ble [id number] Routine Exams 07/06/20 18:35 [place] [id number] Routin e Ultrasound 07/07/20 07:00 Completed US abdomen comple te* [id number] Urgent Ultrasound 07/06/20 11:47 Completed Labs from last 24 hours 07/08/20 07/08/20 05:30 05:30 WBC 11.6 H RBC 2.89 L Hgb 10.6 L Hct 32.4 L MCV 112.1 H MCH 36.7 H MCHC 32.7 RDW 20.5 H Plt Count 221 MPV 9.6 Neut % (Auto) 77.9 Lymph % (Auto) 13.3 [place] % (Auto) 3.9 Eos % (Auto) 3.9 Baso % (Auto) 0.5 Neut # (Auto) 9.06 H Lymph # (Auto) 1.5 [place] # (Auto) 0.5 Eos # (Auto) 0.5 Baso # (Auto) 0.1 Nucleated RBC % (a uto) 0 Nucleated RBCs # 0.0 Sodium 137 Potassium 3.7 Chloride 104 Carbon Dioxide 27 Anion Gap 9.7 BUN 12 Creatinine 0.5 GFR Calculation 125.4 Glucose 81 Calculated Osmolal ity 283 L Calcium 8.1 L Magnesium 1.9 Total Bilirubin 1.7 H AST 19 ALT 9 Alkaline Phosphata se 98 Total Protein 5.3 L Albumin 2.8 L Globulin 2.5 Lipase 65 H Vitals: Last Vital Signs Temp 97.5 F L 07/08/20 08:00 Pulse 66 07/08/20 11:47 Resp 18 07/08/20 11:47 BP 117/79 07/08/20 08:00 Pulse Ox 96 07/08/20 11:47 Discharge Plan Discharge Patient Disposition: Home Condition: Stable Prescriptions: New ibuprofen 200 mg Tablet 400 mg PO TID Qty: 10 RF: 0 folic acid 1 mg Tablet 1 mg PO DAILY Qty: 30 RF: 0 Thera 400 mcg Tablet 1 tab PO DAILY Qty: 30 RF: 0 Vitamin B-1 (mononitrate) 100 mg Tablet 100 mg PO DAILY Qty: 30 RF: 0 Continued albuterol sulfate 90 mcg/actuation Hfa Aerosol Inhaler 2 puff INHALATION Q4H PRN (Reason: Shortness Of Breath) RF: 0 levothyroxine [Euthyrox] 125 mcg tablet 125 mcg PO DAILY@0100 RF: 0 aspirin 81 mg Tablet,Delayed Release (Dr/Ec) 81 mg PO DAILY RF: 0 Discharge Orders: Discharge Order (Routine); Ordered 07/08/20 Ordered By: Elton Giang Referrals: Ml Alexandra FNP [Primary Care Provider] - 4-7 days Discharge Diet: Advance as tolerated and Low Fat Discharge Activity: Increase activity as tolerated Patient Instructions: Alcohol Withdrawal, Pancreatitis (DC), Cirrhosis (DC), Abuse of Alcohol (DC), Thrombophlebitis - Superficial Activity Restrictions/Additional Instructions: Please come back to emergency room if develop any abdominal pain, nausea or vomiting, diarrhea, constipation, abdominal bloating, black stool or blood in the stool, fever or chills, dizziness or lightheadedness, confusion or any other new complaints. Speak with your doctor regarding management of thrombophlebitis. They might consider changing your medications and consider blood thinners. Please stop drinking alcohol to avoid further damage to your pancreas and liver. Discharge Attestations Time Spent in Discharge Care*: less than 30 min Quality Metrics Clinical Quality Measures During this hospital stay, did patient experience: None Coding Level of Care Code Acute Cyber Systems Operations Specialist for Marshal Islas
== END 2020-07-08 14:30 | disposition home or self-care (01) | DRG 440 ==
LOC: ER 18:01 → MEDSURG 18:05
PROVIDERS: Emergency Medicine; Admitting Provider Internal Medicine; Emergency Provider Emergency Medicine; PCP Nurse Practitioner; Visit Provider Internal Medicine
DX: K85.20 Alcohol induced acute pancreatitis without necrosis or infection (principal); K70.0 Alcoholic fatty liver; K70.10 Alcoholic hepatitis without ascites; J45.909 Unspecified asthma, uncomplicated; I80.9 Phlebitis and thrombophlebitis of unspecified site; Z79.82 Long term (current) use of aspirin; E03.9 Hypothyroidism, unspecified; E66.9 Obesity, unspecified; Z68.39 Body mass index [BMI] 39.0-39.9, adult; Z85.42 Personal history of malignant neoplasm of other parts of uterus; Z87.891 Personal history of nicotine dependence
CPT/HCPCS: 12345; 36415; 71045; 74177; 76700; 80053; 80061; 81001; 81003; 83690; 83735; 84145; 85025; 90471; 90686; 93970; 96372; 99283; J1650; J2270; J2405; J3411; J7030; Q9967

== ENCOUNTER 2023-10-18 18:27 | Inpatient (IN) | payer MEDICARE, SELFPAY ==
[2023-10-18] VITALS (10 sets, daily range): BP systolic 141–161; BP diastolic 90–113; PULSE 75–91; RESP 16–20; TEMP 36.5–36.6; O2SAT 95–98; BMI 51.5; BMI 51.2
--- NOTE | 2023-10-18 18:40 | ECG_ITS ---
[facility] Test Date: 2023-10-18 Pat Name: Nya Mayfield Department: Room: Gender: Female Machine Stuffer Automatic: : 1960 Requested By: Clarice De Paz Order Number: [id number] Tulio MD: Milton Hitchcock M.D. Measurements Intervals [place] Rate: 79 P: 151 CT: 202 QRS: -18 QRSD: 92 T: 147 QT: 413 QTc: 475 Interpretive Statements SINUS RHYTHM POSSIBLE LEFT ATRIAL ENLARGEMENT [-0.1mV P-WAVE IN V1/V2] SEPTAL MYOCARDIAL INFARCTION , OF INDETERMINATE AGE [40+ ms Q WAVE IN V1/V2] Compared to ECG 02/07/2019 20:06:46 No significant changes Electronically Signed On 10-18-2023 22:11:08 CDT by Milton Hitchcock M.D. [email or web address]
--- NOTE | 2023-10-18 18:40 | XRR_ITS ---
PROCEDURE INFORMATION: Exam: XR Chest Exam date and time: 10/18/2023 7:27 PM Age: 63 years old Clinical indication: Other: Abdominal pain; Additional info: Abd pain TECHNIQUE: Imaging protocol: Radiologic exam of the chest. Views: 1 view. COMPARISON: CR XR chest 1V portable [id number] 07/06/2020 7:00 PM FINDINGS: Lungs: Unremarkable. No consolidation. Pleural spaces: Unremarkable. No pleural effusion. No pneumothorax. Heart/Mediastinum: Mild cardiomegaly. Bones/joints: Unremarkable. XR/XR chest 1V portable [id number] IMPRESSION: 1. Negative for infiltrate. 2. Mild cardiomegaly.
--- NOTE | 2023-10-18 18:41 | ED_ITS ---
HPI - Abdominal Pain 2 General: Chief Complaint: Abdominal Pain Stated Complaint: n/v believes pancreitis Time Seen by Provider: 10/18/23 18:36 Source: patient Mode of arrival: ambulatory Limitations: no limitations History of Present Illness: 63-year-old female states she has a hist ory of pancreatitis she does abuse alcohol states that she been having epigastric abdominal pain since noon today she also had some nausea and vomiting. She denies any fever denies any shortness of breath. She denies any worsening proving factors rates her pain a 5 out of 10 currently. Feels similar to when she had pancreatitis in the past. She has had her gallbladder out. Associated Symptoms: Reports nausea and vomiting; Denies chills, diarrhea, dysuria and fever(s) Review of Systems 2 Const: Denies: fever(s), chills, body aches or change in appetite ENMT: Denies: throat pain or dental pain Card: Denies: chest pain Resp: Denies: dyspnea GI: Reports: abdominal pain, nausea and vomiting; Denies: diarrhea : Denies: dysuria Musc: Denies: neck pain or back pain Skin/Breast: Denies: rash Neuro: Denies: headache(s) PFSH ED 2 PFSH: Medical History Uterine cancer Gall stones Superficial thrombophlebitis Vaginal bleeding Pancreatitis Alcohol abuse Obesity Hypothyroidism Surgical History H/O: hysterectomy H/O adenoidectomy History of tonsillectomy History of dilatation and curettage Family History Other Dementia Social History Smoking and tobacco/nicotine status: former use of tobacco/nicotine Alcohol intake: current Physical Exam 2 Const: COMMON NORMALS: no acute distress, patient oriented x3 and healthy appearing HENMT: COMMON NORMALS: normocephalic and atraumatic HEAD & SCALP: n ormocephalic and atraumatic Neck/C-Spine: COMMON NORMALS: full ROM and supple Chest: COMMONS NORMALS: normal inspection of the chest Resp: COMMON NORMALS: normal respiratory effort, No retractions, No use of accessory muscles and clear to auscultation bilaterally AUSCULTATION: clear to auscultation bilaterally Cardio: COMMON NORMALS: regular rate, regular rhythm and No murmurs present (Cardio) RATE: regular rate RHYTHM: regular rhythm GI: COMMON NORMALS: Normal to inspection, nondistended, normoactive bowel sounds present, Soft to palpation and no masses PALPATION: Yes Soft to palpation OTHER: slight epigastric tenderness Extremity: COMMON NORMALS: normal to inspection and full ROM Neuro: COMMON NORMALS: patient oriented x3, moves all extremities and no focal motor deficits Psych: COMMON NORMALS: mental status grossly normal, Normal thought process present and cooperative THOUGHT PROCESS: Normal thought process present Skin: COMMON NORMALS: no rashes or lesions noted and no wounds GENERAL SKIN EXAM: no rashes or lesions noted Course 2 Vital Signs: Vital signs: Vital Signs Temperature 97.7 F 10/18/23 18:31 Pulse Rate 81 10/18/23 18:57 Respiratory Rate 20 H 10/18/23 19:19 Blood Pressure 146/94 10/18/23 18:31 Pulse Oximetry 95 10/18/23 19:19 Oxygen Delivery Me thod Room Air 10/18/23 18:31 MDM - Abdominal Pain Medical Decision Making Patient presents here with abdominal pain patient does have an elevated lipase along with CT findings consistent with a pancreatitis she had a history of pancreatitis in the past due to her alcohol use she is stable for admission at this time Medical Records I reviewed the patient's medical records. Lab Data I reviewed the patient's lab results. 10/18/23 18:50 10/18/23 18:50 Labs/Radiology: Radiology Impressions Chest X-Ray 10/18/23 18:40 IMPRESSION: 1. Negative for infiltrate. 2. Mild cardiomegaly. Abdomen/Pelvis CT 10/18/23 18:44 IMPRESSION: 1. Edematous pancreas with peripancreatic edema and nonlocalized fluid consistent with pancreatitis. 2. Moderate to large umbilical hernia containing omentum without bowel. 3. Diverticulosis without diverticulitis. Laboratory Results WBC 12.46 10^3/uL (3.29-11.43) H 10/18/23 18:50 RBC 5.20 10^6/uL (3.85-5.65) 10/18/23 18:50 Hgb 16.30 g/dL (11.27-16.99) 10/18/23 18:50 Hct 48.2 % (36-47) H 10/18/23 18:50 MCV 92.7 fl (85-98) 10/18/23 18:50 MCH 31.3 pg (27-33) 10/18/23 18:50 MCHC 33.8 g/dL (30-55) 10/18/23 18:50 RDW 13.7 % (12.1-15.1) 10/18/23 18:50 Plt Count 325 10^3/cmm (157-399) 10/18/23 18:50 MPV 9.1 fL (7.4-10.4) 10/18/23 18:50 Neut % (Auto) 89.3 % 10/18/23 18:50 Lymph % (Auto) 5.9 % 10/18/23 18:50 [place] % (Auto) 4.3 % 10/18/23 18:50 Eos % (Auto) 0.0 % 10/18/23 18:50 Baso % (Auto) 0.2 % 10/18/23 18:50 Neut # (Auto) 11.12 10^3/uL (1.8-7.7) H 10/18/23 18:50 Lymph # (Auto) 0.7 10^3/uL (0.8-4.8) L 10/18/23 18:50 [place] # (Auto) 0.5 10^3/uL (0.2-0.9) 10/18/23 18:50 Eos # (Auto) 0.0 10^3/uL (0.0-0.8) 10/18/23 18:50 Baso # (Auto) 0.0 10^3/uL (0.0-0.1) 10/18/23 18:50 Nucleated RBC % (auto) 0 % 10/18/23 18:50 Nucleated RBCs # 0.0 /100WBC 10/18/23 18:50 Sodium 138 mmol/L (136-145) 10/18/23 18:50 Potassium 2.8 mmol/L (3.5-5.1) L* 10/18/23 18:50 Chloride 93 mmol/L (98-107) L 10/18/23 18:50 Carbon Dioxide 30 mmol/L (22-29) H 10/18/23 18:50 Anion Gap 17.8 (5-19) 10/18/23 18:50 BUN 7 mg/dL (8-23) L 10/18/23 18:50 Creatinine 0.7 mg/dL (0.5-0.9) 10/18/23 18:50 GFR Calculation 84.0 mL/min (90-130) L 10/18/23 18:50 Glucose 168 mg/dL (65-115) H 10/18/23 18:50 Calculated Osmolality 288 mOsm/kg (285-295) 10/18/23 18:50 Calcium 9.4 mg/dL (8.5-10.5) 10/18/23 18:50 Magnesium 1.8 mg/dL (1.7-2.3) 10/18/23 18:58 Total Bilirubin 1.3 mg/dL (0.15-1.2) H 10/18/23 18:50 AST 42 U/L (0-32) H 10/18/23 18:50 ALT 23 U/L (0-33) 10/18/23 18:50 Alkaline Phosphatase 138 U/L (35-105) H 10/18/23 18:50 Troponin T Baseline 9 ng/L (0-10) 10/18/23 18:50 Total Protein 7.3 g/dL (6.6-8.7) 10/18/23 18:50 Albumin 4.0 g/dL (3.5-5.2) 10/18/23 18:50 Globulin 3.3 g/dL (1.3-4.6) 10/18/23 18:50 Lipase 2720 U/L (13-60) H 10/18/23 18:50 Ethyl Alcohol < 10 mg/dL (0-10) 10/18/23 18:50 All radiology interpretation(s) finalized by discharge EKG Data EKG 1: I personally reviewed and interpreted this EKG as follows: EKG interpretation date: 10/18/23 EKG interpretation time: 18:49 Interpretation: nsr hr [address] elevation qrs 96 qtc 468 Discharge Plan Discharge Condition: Stable Prescriptions: No Action albuterol sulfate 90 mcg/actuation Hfa Aerosol Inhaler 2 puff INHALATION Q4H PRN (Reason: Shortness Of Breath) levothyroxine [Euthyrox] 125 mcg tablet 125 mcg PO DAILY@0100 aspirin 81 mg Tablet,Delayed Release (Dr/Ec) 81 mg PO DAILY ibuprofen 200 mg Tablet 400 mg PO TID Qty: 10 0RF folic acid 1 mg Tablet 1 mg PO DAILY Qty: 30 0RF Thera 400 mcg Tablet 1 tab PO DAILY Qty: 30 0RF Vitamin B-1 (mononitrate) 100 mg Tablet 100 mg PO DAILY Qty: 30 0RF Referrals: Jessica Tamayo DO [Primary Care Provider] - Coding Level of Care Code ED Service Desk Agent for Chg [employer]
--- NOTE | 2023-10-18 18:44 | CTR_ITS ---
PROCEDURE INFORMATION: Exam: CT Abdomen And Pelvis With Contrast Exam date and time: 10/18/2023 7:36 PM Age: 63 years old Clinical indication: Abdominal pain; Epigastric; Prior surgery; Surgery date: 6+ months; Surgery type: Hyst; Additional info: Abd pain TECHNIQUE: Imaging protocol: Computed tomography of the abdomen and pelvis with contrast. Radiation optimization: All CT scans at this facility use at least one of these dose optimization techniques: automated exposure control; mA and/or kV adjustment per patient size (includes targeted exams where dose is matched to clinical indication); or iterative reconstruction. Contrast material: OMNI 350; Contrast volume: 1324.23 ml; Contrast route: INTRAVENOUS (IV); COMPARISON: CT abdomen pelvis w con* [id number] 07/06/2020 5:16 PM RADIATION DOSE METRICS: Total DLP (mGy-cm): 1324.23 FINDINGS: Liver: Normal. No mass. Gallbladder and bile ducts: Normal. No calcified stones. No ductal dilation. Pancreas: Edematous pancreas with peripancreatic edema and nonlocalized fluid consistent with pancreatitis. Spleen: Normal. No splenomegaly. Adrenal glands: Normal. No mass. Kidneys and ureters: Normal. No hydronephrosis. Stomach and bowel: Diverticulosis without diverticulitis. Appendix: No evidence of appendicitis. Intraperitoneal space: Unremarkable. No free air. No significant fluid collection. Vasculature: Unremarkable. No abdominal aortic aneurysm. Lymph nodes: Unremarkable. No enlarged lymph nodes. Urinary bladder: Unremarkable as visualized. Reproductive: Unremarkable as visualized. Bones/joints: Unremarkable. No acute fracture. Soft tissues: Moderate to large umbilical hernia containing omentum without bowel. CT/CT abdomen pelvis w con* [id number] IMPRESSION: 1. Edematous pancreas with peripancreatic edema and nonlocalized fluid consistent with pancreatitis. 2. Moderate to large umbilical hernia containing omentum without bowel. 3. Diverticulosis without diverticulitis.
[2023-10-18 19:06] LABS: Basophils % 0.2 %; Hematocrit 48.2 % (36-47); Lymphocytes # 0.7 10^3/uL (0.8-4.8); Lymphocytes % 5.9 %; Mean Corpuscular HGB Conc 33.8 g/dL (30-55); Mean Corpuscular Hemoglobin 31.3 pg (27-33); Mean Corpuscular Volume 92.7 fl (85-98); Mean Platelet Volume 9.1 fL (7.4-10.4); Monocytes # 0.5 10^3/uL (0.2-0.9); Monocytes % 4.3 %; Neutrophils # 11.12 10^3/uL (1.8-7.7); Neutrophils % 89.3 %; Nucleated Red Blood Cells % 0 %; Platelet Count 325 10^3/cmm (157-399); Red Cell Distribution Width 13.7 % (12.1-15.1); White Blood Count 12.46 10^3/uL (3.29-11.43)
[2023-10-18] MEDS: morphine 4 mg/mL SDV 1 mL IVP (19:19)
[2023-10-18] MEDS: ondansetron 2 mg/ML SDV 2 mL 4 MG IVP (19:20)
[2023-10-18 19:24] LABS: Troponin(5th) Baseline 9 ng/L (0-10)
[2023-10-18 19:26] LABS: Alanine Aminotransferase 23 U/L (0-33); Alkaline Phosphatase 138 U/L (35-105); Anion Gap 17.8 (5-19); Aspartate Amino Transferase 42 U/L (0-32); Blood Urea Nitrogen 7 mg/dL (8-23); Calcium 9.4 mg/dL (8.5-10.5); Carbon Dioxide 30 mmol/L (22-29); Chloride 93 mmol/L (98-107); Creatinine Clr Calc Pharmacy 96.5671; Globulin 3.3 g/dL (1.3-4.6); Glucose 168 mg/dL (65-115); Osmolality Calculated 288 mOsm/kg (285-295); Sodium 138 mmol/L (136-145); Total Bilirubin 1.3 mg/dL (0.15-1.2); Total Protein 7.3 g/dL (6.6-8.7)
[2023-10-18 19:28] LABS: Alcohol Level < 10 mg/dL (0-10); Potassium 2.8 mmol/L (3.5-5.1)
[2023-10-18] MEDS: iohexol 350 mg/mL 500 mL Btl (per mL) IV (19:36)
[2023-10-18 19:41] LABS: Lipase 2720 U/L (13-60)
[2023-10-18 19:48] LABS: Magnesium 1.8 mg/dL (1.7-2.3)
[2023-10-18] MEDS: potassium chloride ER 20 mEq Tablet 60 MEQ PO (19:49)
--- NOTE | 2023-10-18 20:40 | ECG_ITS ---
[facility] Test Date: 2023-10-18 Pat Name: Nya Mayfield Department: Room: Gender: Female Computer Security Coordinator: : 1960 Requested By: Clarice De Paz Order Number: [id number] Tulio MD: Milton Hitchcock M.D. Measurements Intervals [place] Rate: 77 P: -4 DE: 176 QRS: -1 QRSD: 91 T: 89 QT: 429 QTc: 487 Interpretive Statements SINUS RHYTHM SEPTAL MYOCARDIAL INFARCTION , OF INDETERMINATE AGE [40+ ms Q WAVE IN V1/V2] Compared to ECG 10/18/2023 18:45:11 No significant changes Electronically Signed On 10-18-2023 22:12:00 CDT by Milton Hitchcock M.D. [id number]
--- NOTE | 2023-10-18 21:00 | P.HP_ITS ---
Providers/Chief Complaint 2 Admitting Physician: Joseluis Brizuela MD Primary Care Provider: Jessica Tamayo DO Chief Complaint: n/v believes pancreitis History of Present Illness Nya Mayfield is a 63 year old female with a past medical history of alcohol abuse, hypertension hypothyroidism, history of pancreatitis who presents [facility] for abdominal pain. Patient tells me that her last drink of alcohol was yesterday evening, she had 3 cocktails with bourbon, this afternoon roughly at noon time she started develop abdominal discomfort, primarily in the epigastrium, associate with nausea and vomiting, no diarrhea, no fevers, no chills, no bloody or black stools no hematemesis, denies a history of alcohol withdrawal, does have a history of alcohol pancreatitis Review of Systems 2 Const: Denies: fever(s) Card: Denies: chest pain GI: Reports: abdominal pain and vomiting Neuro: Denies: headache(s) Medications/Allergies Home Medications Medication Instructions Recorded Confirmed Last Taken Type albuterol sulfate 90 mcg/actuation 2 puff inhalation Q4H PRN 09/19/19 07/06/20 Unknown History aerosol inhaler Shortness Of Breath levothyroxine 125 mcg tablet 125 mcg PO DAILY@0100 12/05/19 07/06/20 07/06/20 History (Euthyrox) aspirin 81 mg tablet,delayed 81 mg PO DAILY 07/06/20 07/06/20 07/04/20 History release folic acid 1 mg tablet 1 mg PO DAILY #30 tabs 07/08/20 Unknown Rx ibuprofen 200 mg tablet 400 mg (2 x 200 mg) PO TID #10 tabs 07/08/20 Unknown Rx multivitamin with folic acid 400 1 tab PO DAILY #30 tabs 07/08/20 Unknown Rx mcg tablet (Thera) thiamine mononitrate (vit B1) 100 100 mg PO DAILY #30 tabs 07/08/20 Unknown Rx mg tablet (Vitamin B-1 (mononitrate)) Allergies Allergy/AdvReac Type Severity Reaction Status Date / Time codeine Allergy ALGY-Hives Verified 07/06/20 16:49 PFSH Acute 2 PFSH: Medical History Uterine cancer Gall stones Superficial thrombophlebitis Vaginal bleeding Pancreatitis Alcohol abuse Obesity Hypothyroidism Surgical History H/O: hysterectomy H/O adenoidectomy History of tonsillectomy History of dilatation and curettage Family History Other Dementia Social History Smoking and tobacco/nicotine status: former use of tobacco/nicotine Alcohol intake: current Vitals/I&O/Wt Last Vital Signs Temp 97.7 F 10/18/23 18:31 Pulse 81 10/18/23 20:48 Resp 17 10/18/23 20:48 BP 141/90 10/18/23 20:48 Pulse Ox 95 10/18/23 20:48 O2 Del Method Room Air 10/18/23 18:31 Weight last 48 hrs Weight 136.078 kg Physical Exam 2 Const: COMMON NORMALS: no acute distress and patient oriented x3 HENMT: COMMON NORMALS: normocephalic Eye: COMMON NORMALS: Equal, round and reactive pupils present Lymph: LYMPHATIC: no lymphadenopathy noted Resp: COMMON NORMALS: normal respiratory effort, No retractions, No use of accessory muscles and clear to auscultation bilaterally AUSCULTATION: clear to auscultation bilaterally Cardio: COMMON NORMALS: regular rate, regular rhythm, S1 normal heart sound present and S2 normal heart sound present RATE: regular rate RHYTHM: r egular rhythm HEART SOUNDS: S1 normal heart sound present and S2 normal heart sound present GI: OTHER: Abdomen soft, distended, good bowel sounds, no guarding, no rebound, rigidity, has right upper quadrant tenderness, tenderness in the epigastrium Extremity: COMMON NORMALS: no pedal edema Neuro: COMMON NORMALS: patient oriented x3, CN's II-XII intact bilaterally and moves all extremities Psych: COMMON NORMALS: mental status grossly normal Data 10/18/23 18:50 10/18/23 18:50 A&P Assessment and plan (1) Alcohol abuse: (2) Pancreatitis, alcoholic, acute: (3) Hypokalemia: (4) Periodontitis: Plan Alcoholic pancreatitis ? Plan ? Does have right upper quadrant tenderness to palpation, will order gallbladder ultrasound ? N.p.o., ? IV fluids ? Serial abdominal exams ? Full code ? Lovenox for DVT prophylaxis Alcohol abuse, monitor for alcohol withdrawal [facility] protocol ? Banana bag Periodontitis, left central incisor, start Augmentin Hypokalemia has received 60 mill equivalents of potassium in the ER, recheck potassium in the morning Attestations 2 Medical Necessity Statement*: Patient requires hospitalization, inpatient, greater than 2 midnights, for alcoholic pancreatitis, nausea, vomiting Diagnoses Alcohol abuse F10.10 Pancreatitis, alcoholic, acute K85.20 Hypokalemia E87.6 Periodontitis K05.30
[2023-10-18] MEDS: metoclopramide 5 mg/mL SDV 2 mL IVP (21:33)
[2023-10-18] MEDS: folic acid 1 MG, multivitamin inj 10 ML, thiamine 100 MG in sodium chloride 0.9% 1,000 ML 252.800000000000011 MG IV (21:33)
[2023-10-18 21:34] LABS: INR 0.96 (0.8-1.2)
[2023-10-18] MEDS: pantoprazole 40 mg SDV IVP (21:34)
[2023-10-18] MEDS: enoxaparin 40 mg/0.4 mL Syringe SUBCUT (21:34)
[2023-10-18] MEDS: acetaminophen 325 mg Tablet 650 MG PO (21:34)
[2023-10-18 21:52] LABS: NT Pro B Type Natriuretic Pept 103 pg/mL (0-125); Procalcitonin 0.03 ng/mL (0-0.5); Thyroid Stimulating Hormone 2.29 uIU/mL (0.27-4.20)
[2023-10-18 21:58] LABS: Estmated Average Glucose 105; Hemoglobin A1C 5.3 % (4.0-6.0)
[2023-10-18 22:03] LABS: C Reactive Protein 17.2 mg/L (0.0-4.9)
[2023-10-18 22:07] LABS: Lactic Sepsis W/Reflex 3.2 mmol/L (0.5-2.2)
[2023-10-18] MEDS: morphine 4 mg/mL SDV 1 mL 2 MG IVP (23:06)
[2023-10-18 23:37] LABS: Reflex Lactate Order REFLEX LACTIC ORDERD
[2023-10-19] VITALS (10 sets, daily range): BP systolic 128–145; BP diastolic 72–85; PULSE 70–88; RESP 15–18; TEMP 36.6–37.2; O2SAT 91–96
--- NOTE | 2023-10-19 00:40 | ECG_ITS ---
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 Measurements Intervals [place] Rate: 81 P: -6 VT: 169 QRS: 17 QRSD: 96 T: 52 QT: 431 QTc: 501 Interpretive Statements SINUS RHYTHM LOW QRS VOLTAGE IN PRECORDIAL LEADS [QRS DEFLECTION < 1.0 mV IN CHEST LEADS] SEPTAL MYOCARDIAL INFARCTION , OF INDETERMINATE AGE [40+ ms Q WAVE IN V1/V2] INTERPRETATION BASED ON A DEFAULT AGE OF 40 YEARS Compared to ECG 10/18/2023 18:45:11 Low QRS voltage now present Myocardial infarct finding still present Electronically Signed On 10-19-2023 14:09:43 CDT by Camden Lawrence M.D. [id number]
[2023-10-19 00:56] LABS: Basophils % 0.3 %; Hematocrit 45.8 % (36-47); Lymphocytes # 0.8 10^3/uL (0.8-4.8); Lymphocytes % 5.5 %; Mean Corpuscular HGB Conc 33.8 g/dL (30-55); Mean Corpuscular Hemoglobin 31.8 pg (27-33); Mean Platelet Volume 9.2 fL (7.4-10.4); Monocytes # 0.6 10^3/uL (0.2-0.9); Monocytes % 4.2 %; Neutrophils # 13.39 10^3/uL (1.8-7.7); Neutrophils % 89.6 %; Nucleated Red Blood Cells % 0 %; Platelet Count 317 10^3/cmm (157-399); Red Blood Count 4.87 10^6/uL (3.85-5.65); Red Cell Distribution Width 13.8 % (12.1-15.1); White Blood Count 14.94 10^3/uL (3.29-11.43)
[2023-10-19 01:20] LABS: Troponin 5 6HR 10.29 ng/L (0-10); Troponin 5 6HR Delta 1.29 ng/L (0-12)
[2023-10-19 01:21] LABS: Alanine Aminotransferase 21 U/L (0-33); Albumin Level 3.7 g/dL (3.5-5.2); Alkaline Phosphatase 121 U/L (35-105); Anion Gap 17.2 (5-19); Aspartate Amino Transferase 36 U/L (0-32); Blood Urea Nitrogen 8 mg/dL (8-23); Calcium 8.7 mg/dL (8.5-10.5); Carbon Dioxide 28 mmol/L (22-29); Chloride 96 mmol/L (98-107); Creatinine Clr Calc Pharmacy 96.2457; Globulin 3.2 g/dL (1.3-4.6); Glomerular Filtration Rate 100.3 mL/min (90-130); Glucose 133 mg/dL (65-115); Magnesium 1.9 mg/dL (1.7-2.3); Osmolality Calculated 286 mOsm/kg (285-295); Phosphorus 3.1 mg/dL (2.5-4.5); Potassium 3.2 mmol/L (3.5-5.1); Sodium 138 mmol/L (136-145); Total Bilirubin 1.2 mg/dL (0.15-1.2); Total Protein 6.9 g/dL (6.6-8.7)
[2023-10-19 01:22] LABS: Lactic Acid level (Lactate) 2.6 mmol/L (0.5-2.2)
[2023-10-19] MEDS: sodium chloride 0.9% 1,000 ML 125 ML IV ×3 (01:41→18:14)
[2023-10-19] MEDS: morphine 4 mg/mL SDV 1 mL 2 MG IVP ×2 (05:01→12:25)
[2023-10-19] MEDS: levothyroxine 125 mcg Tablet PO (05:01)
[2023-10-19] MEDS: folic acid 1 mg Tablet PO (08:26)
[2023-10-19] MEDS: amoxicillin-clav 875-125 mg Tablet 1 TAB PO ×2 (08:26→17:23)
[2023-10-19] MEDS: aspirin 81 mg EC Tablet PO (08:26)
[2023-10-19] MEDS: multivitamin therapeutic Tablet 1 TAB PO (08:26)
[2023-10-19] MEDS: thiamine 100 mg Tablet PO (08:26)
--- NOTE | 2023-10-19 14:23 | P.PN_ITS ---
Subjective 2 Subjective: Patient states that the nausea is slightly better. Pain is intermittent. Currently appears to be controlled with medication regimen. Medications: Reviewed: Yes Vitals/I&O/Wt Last Vital Signs Temp 98.8 F 10/19/23 12:00 Pulse 73 10/19/23 12:00 Resp 16 10/19/23 12:25 BP 139/72 10/19/23 12:00 Pulse Ox 96 10/19/23 12:00 O2 Del Method Room Air 10/18/23 22:31 10/18/23 10/19/23 10/19/23 22:59 06:59 14:59 Intake Total 0 / 0 1011.2 / 1011.2 1000 / 1000 Balance 0 / 0 1011.2 / 1011.2 1000 / 1000 Weight last 48 hrs Weight 133.356 kg Weight 135.352 kg Weight 136.078 kg Physical Exam 2 Narrative: General: No acute distress, AO x3 HEENT: PERRLA, pupils bilaterally equal and reactive, pallors not present Chest: Normal vesicular breath sounds, no added sounds, equal good air entry bilaterally CVS: S1-S2 regular, no murmurs, no tachycardia, no gallops, no rubs Abdomen: Soft, nondistended, tenderness to palpation over the left anterior abdomen and epigastric area. Neuro: No focal deficits, no facial deformity, AO x3, power 5/5 in all limbs Extremities: No edema clubbing or cyanosis. Data 10/19/23 00:49 10/19/23 00:49 A&P Assessment and plan (1) Alcohol abuse: (2) Pancreatitis, alcoholic, acute: (3) Hypokalemia: (4) Periodontitis: Plan Alcoholic pancreatitis ? Plan ? Does have right upper quadrant tenderness to palpation, will order gallbladder ultrasound ? N.p.o., ? IV fluids ? Serial abdominal exams ? Full code ? Lovenox for DVT prophylaxis Alcohol abuse, monitor for alcohol withdrawal [facility] protocol ? Banana bag Periodontitis, left central incisor, start Augmentin Hypokalemia has received 60 mill equivalents of potassium in the ER, recheck potassium in the morning Plan for today October 19, 2023. Patient noted to have pancreatitis. Reports this to be a 3rd episode. CT with edematous pancreas with peripancreatic edema and nonlocalized fluid consistent with pancreatitis. No signs of incarcerated hernia. Likely to be triggered by alcohol consumption. Patient reports last drink at 11 PM on the day prior to hospital admission. Check triglycerides. CT of the abdomen and pelvis and ultrasound does not show any dilated ducts. Incidentally noted cholelithiasis without acute cholecystitis. Possible changes of early cirrhosis on the liver. Continue IV fluids sodium chloride at 125 cc an hour. Continue thiamine. [facility] protocol to monitor for alcohol withdrawal. Trial of clear liquid diet.continue oral Augmentin for periodontitis. Attestations 2 Medical Necessity Statement*: Continued admission for management of acute pancreatitis. Coding Level of Care Code Acute Code for [facility] Diagnoses Alcohol abuse F10.10 Pancreatitis, alcoholic, acute K85.20 Hypokalemia E87.6 Periodontitis K05.30
[2023-10-19 14:45] LABS: Triglycerides 85 mg/dL (0-150)
[2023-10-19] MEDS: enoxaparin 40 mg/0.4 mL Syringe SUBCUT (20:02)
[2023-10-19] MEDS: pantoprazole 40 mg SDV IVP (20:30)
--- NOTE | 2023-10-19 21:01 | US_ITS ---
WS: [id number] RIGHT UPPER QUADRANT ULTRASOUND HISTORY: abdominal pain COMPARISON: 07/06/2020 Liver: 13.2 cm in length. Coarse echotexture throughout the liver. Surface of the liver is very sligh tly nodular which may indicate cirrhosis. No mass. No bile duct dilatation. Portal Vein: Normal hepatopetal flow with monophasic waveform. Gallbladder: Normally distended gallbladder. Cholelithiasis. A single large stone identified measures 2.2 cm in diameter. CBD: 0.4 cm Pancreas: Body is normal. Head and tail of the pancreas are obscured by bowel gas. Right kidney: 10.6 cm in length. Normal size and echogenicity. No hydronephrosis or mass. Aorta and IVC: Poorly visualized. No ascites. IMPRESSION: 1. Cholelithiasis without acute cholecystitis. 2. Hepatic steatosis with changes suggesting early cirrhosis.
[2023-10-19] MEDS: acetaminophen 325 mg Tablet 650 MG PO (21:55)
[2023-10-20] VITALS (9 sets, daily range): BP systolic 110–121; BP diastolic 74–81; PULSE 67–88; RESP 16–18; TEMP 36.4–37.3; O2SAT 92–96
[2023-10-20] MEDS: sodium chloride 0.9% 1,000 ML 125 ML IV (01:19)
[2023-10-20 04:48] LABS: Basophils # 0.1 10^3/uL (0.0-0.1); Basophils % 0.7 %; Eosinophils # 0.2 10^3/uL (0.0-0.8); Eosinophils % 2.5 %; Hematocrit 41.6 % (36-47); Lymphocytes # 1.4 10^3/uL (0.8-4.8); Lymphocytes % 15.8 %; Mean Corpuscular HGB Conc 32.9 g/dL (30-55); Mean Corpuscular Hemoglobin 31.6 pg (27-33); Mean Corpuscular Volume 95.9 fl (85-98); Mean Platelet Volume 9.1 fL (7.4-10.4); Monocytes # 0.8 10^3/uL (0.2-0.9); Monocytes % 8.9 %; Neutrophils # 6.43 10^3/uL (1.8-7.7); Neutrophils % 71.9 %; Nucleated Red Blood Cells % 0 %; Platelet Count 259 10^3/cmm (157-399); Red Blood Count 4.34 10^6/uL (3.85-5.65); White Blood Count 8.94 10^3/uL (3.29-11.43)
[2023-10-20 05:05] LABS: Alanine Aminotransferase 12 U/L (0-33); Alkaline Phosphatase 93 U/L (35-105); Anion Gap 12.7 (5-19); Aspartate Amino Transferase 27 U/L (0-32); Blood Urea Nitrogen 7 mg/dL (8-23); Calcium 7.7 mg/dL (8.5-10.5); Carbon Dioxide 27 mmol/L (22-29); Chloride 100 mmol/L (98-107); Creatinine Clr Calc Pharmacy 96.6676; Globulin 3.3 g/dL (1.3-4.6); Glomerular Filtration Rate 100.3 mL/min (90-130); Glucose 187 mg/dL (65-115); Osmolality Calculated 287 mOsm/kg (285-295); Sodium 137 mmol/L (136-145); Total Bilirubin 1.4 mg/dL (0.15-1.2); Total Protein 6.3 g/dL (6.6-8.7)
[2023-10-20 05:13] LABS: Potassium 2.7 mmol/L (3.5-5.1)
[2023-10-20] MEDS: levothyroxine 125 mcg Tablet PO (06:27)
[2023-10-20] MEDS: potassium chloride ER 20 mEq Tablet 60 MEQ PO (06:38)
[2023-10-20] MEDS: amoxicillin-clav 875-125 mg Tablet 1 TAB PO ×2 (08:07→17:32)
[2023-10-20] MEDS: aspirin 81 mg EC Tablet PO (08:07)
[2023-10-20] MEDS: multivitamin therapeutic Tablet 1 TAB PO (08:07)
[2023-10-20] MEDS: folic acid 1 mg Tablet PO (08:07)
[2023-10-20] MEDS: thiamine 100 mg Tablet PO (08:07)
--- NOTE | 2023-10-20 10:14 | PC.SOCIAL ---
Pg 2 IMM Explained to pt Pg 2 IMM. No questions voiced. Provided pt a copy. Initialed, dated, & timed a copy & placed in chart.
[2023-10-20] MEDS: dextrose 5%-ns + KCl 40 40 MEQ/1,000 ML BAG 100 MEQ IV ×2 (11:41→21:07)
--- NOTE | 2023-10-20 13:29 | P.PN_ITS ---
Subjective 2 Subjective: Feels like she is improving. Wishes to advance her diet to GI soft today. Hypokalemia noted this morning. Abdominal pain is improving. Less nauseous. Tolerated clear liquid diet. Medications: Reviewed: Yes Vitals/I&O/Wt Last Vital Signs Temp 98.0 F 10/20/23 11:26 Pulse 67 10/20/23 11:26 Resp 16 10/20/23 11:26 BP 110/78 10/20/23 11:26 Pulse Ox 94 10/20/23 11:26 O2 Del Method Room Air 10/20/23 11:26 10/19/23 10/20/23 10/20/23 22:59 06:59 14:59 Intake Total 1554.167 / 2554.167 1000 / 3554.167 1670 / 1670 Balance 1554.167 / 2554.167 1000 / 3554.167 1670 / 1670 Weight last 48 hrs Weight 136.305 kg Weight 133.356 kg Weight 135.352 kg Weight 136.078 kg Physical Exam 2 Narrative: General: No acute distress, AO x3 HEENT: PERRLA, pupils bilaterally equal and reactive, pallors not present Chest: Normal vesicular breath sounds, no added sounds, equal good air entry bilaterally CVS: S1-S2 regular, no murmurs, no tachycardia, no gallops, no rubs Abdomen: Soft, nondistended, improved tenderness Neuro: No focal deficits, no facial deformity, AO x3, power 5/5 in all limbs Extremities: No edema clubbing or cyanosis. Data 10/20/23 04:40 10/20/23 04:40 A&P Assessment and plan (1) Alcohol abuse: (2) Pancreatitis, alcoholic, acute: (3) Hypokalemia: (4) Periodontitis: Plan Alcoholic pancreatitis ? Plan ? Does have right upper quadrant tenderness to palpation, will order gallbladder ultrasound ? N.p.o., ? IV fluids ? Serial abdominal exams ? Full code ? Lovenox for DVT prophylaxis Alcohol abuse, monitor for alcohol withdrawal [facility] protocol ? Banana bag Periodontitis, left central incisor, start Augmentin Hypokalemia has received 60 mill equivalents of potassium in the ER, recheck potassium in the morning Plan for today October 19, 2023. Patient noted to have pancreatitis. Reports this to be a 3rd episode. CT with edematous pancreas with peripancreatic edema and nonlocalized fluid consistent with pancreatitis. No signs of incarcerated hernia. Likely to be triggered by alcohol consumption. Patient reports last drink at 11 PM on the day prior to hospital admission. Check triglycerides. CT of the abdomen and pelvis and ultrasound does not show any dilated ducts. Incidentally noted cholelithiasis without acute cholecystitis. Possible changes of early cirrhosis on the liver. Continue IV fluids sodium chloride at 125 cc an hour. Continue thiamine. [facility] protocol to monitor for alcohol withdrawal. Trial of clear liquid diet.continue oral Augmentin for periodontitis. Plan for today October 20, 2023. Clinically improving. Abdominal pain is much improved. Nausea resolved. Advance diet today to GI soft. Assess for tolerability. Hypokalemia with potassium down to 2.7. Received 60 mEq p.o. KCl today. Recheck with a.m. labs. No diarrhea. Passing flatus. Change fluids to D5 normal saline with added KCl. Anticipate discharge in the upcoming 24 hours if continues to do well. Attestations 2 Medical Necessity Statement*: Advance diet today. Assess for tolerability. Coding Level of Care Code Acute Code for Chg Fwd Moderate MDM includes number and complexity of problems actively addressed during encounter, amount and/or complexity of data reviewed/ordered and described risk of complication, morbidity or mortality of management as documented Diagnoses Alcohol abuse F10.10 Pancreatitis, alcoholic, acute K85.20 Hypokalemia E87.6 Periodontitis K05.30
[2023-10-20] MEDS: enoxaparin 40 mg/0.4 mL Syringe SUBCUT (20:09)
[2023-10-20 21:15] LABS: C.Diff PCR (Lab) NEGATIVE (Negative)
[2023-10-20] MEDS: acetaminophen 325 mg Tablet 650 MG PO (22:28)
[2023-10-21] VITALS: BP 109/70; PULSE 96; RESP 20; TEMP 37.1; O2SAT 93
[2023-10-21 03:35] VITALS: BP 139/81; PULSE 89; RESP 20; TEMP 36.7; O2SAT 95
[2023-10-21 05:15] VITALS: PULSE 77
[2023-10-21 05:24] LABS: Basophils # 0.1 10^3/uL (0.0-0.1); Basophils % 0.7 %; Eosinophils # 0.2 10^3/uL (0.0-0.8); Eosinophils % 2.9 %; Hematocrit 40.9 % (36-47); Lymphocytes # 1.8 10^3/uL (0.8-4.8); Lymphocytes % 22.3 %; Mean Corpuscular Hemoglobin 31.7 pg (27-33); Mean Platelet Volume 10.1 fL (7.4-10.4); Monocytes # 0.6 10^3/uL (0.2-0.9); Monocytes % 6.9 %; Neutrophils # 5.51 10^3/uL (1.8-7.7); Neutrophils % 66.8 %; Nucleated Red Blood Cells % 0 %; Platelet Count 287 10^3/cmm (157-399); Red Blood Count 4.26 10^6/uL (3.85-5.65); White Blood Count 8.25 10^3/uL (3.29-11.43)
[2023-10-21 05:34] LABS: Alanine Aminotransferase 17 U/L (0-33); Alkaline Phosphatase 93 U/L (35-105); Aspartate Amino Transferase 25 U/L (0-32); Blood Urea Nitrogen 7 mg/dL (8-23); Calcium 8.2 mg/dL (8.5-10.5); Carbon Dioxide 26 mmol/L (22-29); Chloride 105 mmol/L (98-107); Creatinine Clr Calc Pharmacy 96.6676; Globulin 3.1 g/dL (1.3-4.6); Glomerular Filtration Rate 100.3 mL/min (90-130); Glucose 105 mg/dL (65-115); Osmolality Calculated 288 mOsm/kg (285-295); Sodium 140 mmol/L (136-145); Total Bilirubin 1.1 mg/dL (0.15-1.2); Total Protein 6.1 g/dL (6.6-8.7)
[2023-10-21] MEDS: levothyroxine 125 mcg Tablet PO (06:05)
[2023-10-21 07:54] VITALS: BP 119/82; PULSE 83; RESP 17; TEMP 37; O2SAT 95
[2023-10-21] MEDS: amoxicillin-clav 875-125 mg Tablet 1 TAB PO (07:57)
[2023-10-21] MEDS: folic acid 1 mg Tablet PO (07:58)
[2023-10-21] MEDS: pantoprazole DR 40 mg Tablet PO (07:58)
[2023-10-21] MEDS: aspirin 81 mg EC Tablet PO (07:58)
[2023-10-21] MEDS: thiamine 100 mg Tablet PO (07:58)
[2023-10-21] MEDS: multivitamin therapeutic Tablet 1 TAB PO (07:59)
[2023-10-21] MEDS: dextrose 5%-ns + KCl 40 40 MEQ/1,000 ML BAG 100 MEQ IV (07:59)
[2023-10-21 11:34] VITALS: BP 119/77; PULSE 70; RESP 17; TEMP 36.5; O2SAT 96
[2023-10-21 13:03] VITALS: BP 119/77; PULSE 70; RESP 17; TEMP 36.5; O2SAT 96
--- NOTE | 2023-10-21 14:20 | PC.NURSE ---
Discharge Note Patient discharged to home via private vehicle accompanied by . Discharge instructions reviewed with patient and/or customer service representative teller. Mobile pharmacy medications and/or prescriptions provided. Belongings/home medications returned.
--- NOTE | 2023-10-22 14:04 | P.DS_ITS ---
Discharge Providers Date of Admission: 10/18/23 20:44 Date of Discharge: October 22, 2023 Attending Provider at Admission: Joseluis Brizuela MD Attending Provider at Discharge: Mahi Dumont MD Primary Care Provider: Jessica Tamayo DO Diagnoses at Discharge Discharge Diagnosis (1) Alcohol abuse: Status: Acute (2) Pancreatitis, alcoholic, acute: Status: Acute (3) Hypokalemia: Status: Acute (4) Periodontitis: Status: Acute Reason for Visit Reason for Visit: n/v believes pancreitis Brief History: Nya Mayfield is a 63 year old female with a past medical history of alcohol abuse, hypertension hypothyroidism, history of pancreatitis who presents [facility] for abdominal pain. She had a history of being smoking alcohol this afternoon. Pain was primarily in the epigastric area associated with nausea and vomiting. She was found to have evidence of pancreatitis. CT of the abdomen showed edematous pancreas with peripancreatic edema and nonlocalized fluid consistent with pancreatitis. Patient was managed with bowel rest, IV fluids, pain medication. She initially needed IV opiates for pain management, this improved during the course of admission. On the day of discharge she was tolerating a GI soft diet. Pain has much improved compared to previously. Educated regarding alcohol cessation to prevent recurrence in the future. She received a prescription for Augmentin due to periodontitis, to complete 5 days. She is discharged today in stable to improved condition. Triglyceride level was normal. Ultrasound of the gallbladder and CT of the abdomen negative for any intrahepatic biliary dilatation. Physical Exam Narrative: General: No acute distress, AO x3 HEENT: PERRLA, pupils bilaterally equal and reactive, pallors not present Chest: Normal vesicular breath sounds, no added sounds, equal good air entry bilaterally CVS: S1-S2 regular, no murmurs, no tachycardia, no gallops, no rubs Abdomen: Soft, nontender, no organomegaly, bowel sounds present Neuro: No focal deficits, no facial deformity, AO x3, power 5/5 in all limbs a. Discharge Data Studies Completed and Pending Completed Studies During Hospitalization Category Date Time Status CT abdomen pelvis w con* [id number] Stat Cat Scan 10/18/23 18:44 Completed CXRP [XR chest 1V portable [id number]] Stat Exams 10/18/23 18:40 Completed US gall bladder [id number] Routine Ultrasound 10/19/23 21:01 Completed Radiology Impressions Chest X-Ray 10/18/23 18:40 IMPRESSION: 1. Negative for infiltrate. 2. Mild cardiomegaly. Abdomen/Pelvis CT 10/18/23 18:44 IMPRESSION: 1. Edematous pancreas with peripancreatic edema and nonlocalized fluid consistent with pancreatitis. 2. Moderate to large umbilical hernia containing omentum without bowel. 3. Diverticulosis without diverticulitis. Laboratory Results WBC 8.25 10^3/uL (3.29-11.43) 10/21/23 03:39 RBC 4.26 10^6/uL (3.85-5.65) 10/21/23 03:39 Hgb 13.50 g/dL (11.27-16.99) 10/21/23 03:39 Hct 40.9 % (36-47) 10/21/23 03:39 MCV 96.0 fl (85-98) 10/21/23 03:39 MCH 31.7 pg (27-33) 10/21/23 03:39 MCHC 33.0 g/dL (30-55) 10/21/23 03:39 RDW 14.0 % (12.1-15.1) 10/21/23 03:39 Plt Count 287 10^3/cmm (157-399) 10/21/23 03:39 MPV 10.1 fL (7.4-10.4) 10/21/23 03:39 Neut % (Auto) 66.8 % 10/21/23 03:39 Lymph % (Auto) 22.3 % 10/21/23 03:39 [place] % (Auto) 6.9 % 10/21/23 03:39 Eos % (Auto) 2.9 % 10/21/23 03:39 Baso % (Auto) 0.7 % 10/21/23 03:39 Neut # (Auto) 5.51 10^3/uL (1.8-7.7) 10/21/23 03:39 Lymph # (Auto) 1.8 10^3/uL (0.8-4.8) 10/21/23 03:39 [place] # (Auto) 0.6 10^3/uL (0.2-0.9) 10/21/23 03:39 Eos # (Auto) 0.2 10^3/uL (0.0-0.8) 10/21/23 03:39 Baso # (Auto) 0.1 10^3/uL (0.0-0.1) 10/21/23 03:39 Nucleated RBC % (auto) 0 % 10/21/23 03:39 Nucleated RBCs # 0.0 /100WBC 10/21/23 03:39 PT 13.00 SECONDS (12.1-14.9) 10/18/23 18:50 INR 0.96 (0.8-1.2) 10/18/23 18:50 Sodium 140 mmol/L (136-145) 10/21/23 03:39 Potassium 3.0 mmol/L (3.5-5.1) L 10/21/23 03:39 Chloride 105 mmol/L (98-107) 10/21/23 03:39 Carbon Dioxide 26 mmol/L (22-29) 10/21/23 03:39 Anion Gap 12.0 (5-19) 10/21/23 03:39 BUN 7 mg/dL (8-23) L 10/21/23 03:39 Creatinine 0.6 mg/dL (0.5-0.9) 10/21/23 03:39 GFR Calculation 100.3 mL/min (90-130) 10/21/23 03:39 Glucose 105 mg/dL (65-115) 10/21/23 03:39 Estimat Average Glucose 105 10/18/23 18:50 Hemoglobin A1c 5.3 % (4.0-6.0) 10/18/23 18:50 Calculated Osmolality 288 mOsm/kg (285-295) 10/21/23 03:39 Lactic Acid 3.2 mmol/L (0.5-2.2) H 10/18/23 21:45 Lactic Acid (Sepsis) 2.6 mmol/L (0.5-2.2) H 10/19/23 00:49 Calcium 8.2 mg/dL (8.5-10.5) L 10/21/23 03:39 Phosphorus 3.1 mg/dL (2.5-4.5) 10/19/23 00:49 Magnesium 1.9 mg/dL (1.7-2.3) 10/19/23 00:49 Total Bilirubin 1.1 mg/dL (0.15-1.2) 10/21/23 03:39 AST 25 U/L (0-32) 10/21/23 03:39 ALT 17 U/L (0-33) 10/21/23 03:39 Alkaline Phosphatase 93 U/L (35-105) 10/21/23 03:39 Troponin T Baseline 9 ng/L (0-10) 10/18/23 18:50 Troponin T 120 Minute 10.10 ng/L (0-10) H 10/18/23 20:30 Delta Troponin T 1.10 ABS# (0-10) 10/18/23 20:30 Troponin T Hi Sens 6Hr 10.29 ng/L (0-10) H 10/19/23 00:49 Troponin T Hi Sens 6Hr Delta 1.29 ng/L (0-12) 10/19/23 00:49 C-Reactive Protein 17.2 mg/L (0.0-4.9) H 10/18/23 20:30 NT-Pro-B Natriuret Pep 103 pg/mL (0-125) 10/18/23 20:30 Total Protein 6.1 g/dL (6.6-8.7) L 10/21/23 03:39 Albumin 3.0 g/dL (3.5-5.2) L 10/21/23 03:39 Globulin 3.1 g/dL (1.3-4.6) 10/21/23 03:39 Triglycerides 85 mg/dL (0-150) 10/19/23 00:49 Lipase 2720 U/L (13-60) H 10/18/23 18:50 Procalcitonin 0.03 ng/mL (0-0.5) 10/18/23 20:30 TSH 2.29 uIU/mL (0.27-4.20) 10/18/23 20:30 Ethyl Alcohol < 10 mg/dL (0-10) 10/18/23 18:50 C. difficile (PCR) Negative (Negative) 10/20/23 19:20 Vitals Last Vital Signs Temp 97.7 F 10/21/23 13:03 Pulse 70 10/21/23 13:03 Resp 17 10/21/23 13:03 BP 119/77 10/21/23 13:03 Pulse Ox 96 10/21/23 13:03 O2 Del Method Room Air 10/21/23 11:34 Discharge Plan Discharge Patient Disposition: Home Condition: Stable Prescriptions: New pantoprazole 40 mg Tablet,Delayed Release (Dr/Ec) 40 mg PO DAILY 30 Days Qty: 30 0RF amoxicillin-pot clavulanate 875-125 mg Tablet 1 tab PO BID 5 Days Qty: 10 0RF Continued albuterol sulfate 90 mcg/actuation Hfa Aerosol Inhaler 2 puff INHALATION Q4H PRN (Reason: Shortness Of Breath) levothyroxine [Euthyrox] 125 mcg tablet 125 mcg PO DAILY@0100 aspirin 81 mg Tablet,Delayed Release (Dr/Ec) 81 mg PO DAILY folic acid 1 mg Tablet 1 mg PO DAILY Qty: 30 0RF multivitamin with folic acid [Thera] 400 mcg Tablet 1 tab PO DAILY Qty: 30 0RF thiamine mononitrate (vit B1) [Vitamin B-1 (mononitrate)] 100 mg Tablet 100 mg PO DAILY Qty: 30 0RF Discontinued ibuprofen 200 mg Tablet 400 mg PO TID Qty: 10 0RF Discharge Orders: Discharge Order (Routine); Ordered 10/21/23 Ordered By: Mahi Dumont Referrals: Jessica Tamayo DO [Primary Care Provider] - 10/24/23 3:45 pm Discharge Diet: Usual diet Discharge Activity: Resume usual activity Patient Instructions: Amoxicillin/Clavulanate Potassium (By mouth) (Augmentin, Augmentin..., Pantoprazole (By mouth), Periodontal Disease (DC) Discharge Attestations Time Spent in Discharge Care*: greater than 30 min Quality Metrics Clinical Quality Measures [ No reported AMI, CVA or VTE this stay] Coding Level of Care Code Acute Code for Chg Fwd Diagnoses Alcohol abuse F10.10 Pancreatitis, alcoholic, acute K85.20 Hypokalemia E87.6 Periodontitis K05.30
== END 2023-10-21 14:21 | disposition home or self-care (01) | DRG 440 ==
LOC: ER 19:41 → MEDSURG 20:44
PROVIDERS: Admitting Provider Family Medicine; Emergency Provider Emergency Medicine; PCP Family Medicine; Visit Provider Student in an Organized Health Care Education/Training Program
DX: K85.20 Alcohol induced acute pancreatitis without necrosis or infection (principal); F10.10 Alcohol abuse, uncomplicated; E87.6 Hypokalemia; K05.30 Chronic periodontitis, unspecified; Z87.891 Personal history of nicotine dependence; E03.9 Hypothyroidism, unspecified; I10 Essential (primary) hypertension; K80.20 Calculus of gallbladder without cholecystitis without obstruction
CPT/HCPCS: 36415; 71045; 74177; 76705; 80053; 80307; 83036; 83605; 83690; 83735; 83880; 84100; 84145; 84443; 84478; 84484; 85025; 85610; 86140; 87493; 93005; 96372; 96374; 96375; 99285; C9113; J1650; J2270; J2405; J2765; J3411; J3490; J7030; Q9967

== ENCOUNTER 2025-01-12 02:35 | Emergency (ER) | payer MEDICARE, SELFPAY ==
[2025-01-12] VITALS (8 sets, daily range): BP systolic 98–139; BP diastolic 71–92; PULSE 83–112; RESP 18–21; TEMP 37.1; O2SAT 92–100; BMI 41.1
--- NOTE | 2025-01-12 02:44 | XRR_ITS ---
PROCEDURE INFORMATION: Exam: XR Chest Exam date and time: 01/12/2025 2:48 AM Age: 64 years old Clinical indication: Cough and shortness of breath; Cough with SOB TECHNIQUE: Imaging protocol: Radiologic exam of the chest. Views: 1 view. COMPARISON: CR XR chest 1V portable [id number] 10/18/2023 7:27 PM FINDINGS: Lungs: Lungs are clear bilaterally. Pleural spaces: No pleural effusion. No pneumothorax. Heart/Mediastinum: The cardiac silhouette and mediastinal contours are unremarkable. Vasculature: Stable vascular calcifications in the aorta. Stable tortuosity of the aorta. Bones/joints: Unremarkable for age. XR/XR chest 1V portable [id number] IMPRESSION: 1. No acute cardiopulmonary process. 2. Incidental/nonacute findings are listed in the report.
--- NOTE | 2025-01-12 02:45 | ECG_ITS ---
[facility]: [facility]25[facility]12 Pat Name: Nya Mayfield Department: Room: Gender: Female [place]: : 1960 Requested By: Ottoniel Kline Order Number: [id number] Tulio MD: Milton Hitchcock M.D. Measurements Intervals [place] Rate: 108 P: 72 GA: 195 QRS: 50 QRSD: 78 T: 70 QT: 330 QTc: 444 Interpretive Statements SINUS TACHYCARDIA LOW QRS VOLTAGE IN PRECORDIAL LEADS [QRS DEFLECTION < 1.0 mV IN CHEST LEADS] POSSIBLE ANTERIOR MYOCARDIAL INFARCTION , PROBABLY OLD [30 ms Q WAVE IN V3/V4, OR R < 0.2 mV IN V4] Compared to ECG 10/18/2023 20:31:53 Low QRS voltage now present Sinus rhythm no longer present Myocardial infarct finding still present Electronically Signed On 01-16-2025 09:13:57 CDT by Milton Hitchcock M.D. [id number]
[2025-01-12] MEDS: methylPREDNISolone sod succ 125 mg/2 mL INJ IV (02:55)
[2025-01-12 03:00] LABS: Basophils % 0.4 %; Eosinophils % 0.4 %; Hematocrit 45.2 % (36-47); Lymphocytes # 3.5 10^3/uL (0.8-4.8); Lymphocytes % 37.6 %; Mean Corpuscular HGB Conc 31.9 g/dL (30-55); Mean Corpuscular Hemoglobin 28.2 pg (27-33); Mean Corpuscular Volume 88.5 fl (85-98); Mean Platelet Volume 8.9 fL (7.4-10.4); Monocytes # 0.5 10^3/uL (0.2-0.9); Monocytes % 5.4 %; Neutrophils # 5.22 10^3/uL (1.8-7.7); Neutrophils % 55.9 %; Nucleated Red Blood Cells % 0 %; Platelet Count 335 10^3/cmm (157-399); Red Blood Count 5.11 10^6/uL (3.85-5.65); Red Cell Distribution Width 14.6 % (12.1-15.1); White Blood Count 9.34 10^3/uL (3.29-11.43)
[2025-01-12 03:15] LABS: Lactic Sepsis W/Reflex 3.4 mmol/L (0.5-2.2)
[2025-01-12 03:17] LABS: Reflex Lactate Order REFLEX LACTIC ORDERD; Troponin(5th) Baseline 7 ng/L (0-10)
[2025-01-12 03:35] LABS: Alanine Aminotransferase 14 U/L (0-33); Albumin Level 3.8 g/dL (3.5-5.2); Alcohol Level 106 mg/dL (0-10); Alkaline Phosphatase 113 U/L (35-105); Aspartate Amino Transferase 25 U/L (0-32); Blood Urea Nitrogen 9 mg/dL (8-23); Carbon Dioxide 23 mmol/L (22-29); Chloride 98 mmol/L (98-107); Creatinine Clr Calc Pharmacy 83.3914; Globulin 3.1 g/dL (1.3-4.6); Glomerular Filtration Rate 83.7 mL/min (90-130); Glucose 152 mg/dL (65-115); NT Pro B Type Natriuretic Pept 46 pg/mL (0-125); Osmolality Calculated 290 mOsm/kg (285-295); Sodium 139 mmol/L (136-145); Total Bilirubin 0.6 mg/dL (0.15-1.2); Total Protein 6.9 g/dL (6.6-8.7)
[2025-01-12] MEDS: ipratropium-albuterol 3 mL Neb INHALATION (03:54)
--- NOTE | 2025-01-12 04:01 | W.ED.SOB ---
HPI - SOB/Dyspnea General: Chief Complaint: Shortness of Breath/Dyspnea Stated Complaint: SOB Time Seen by Provider: 01/12/25 02:44 History of Present Illness: HPI Narrative: 64-year-old female with a history of alcohol use disorder. She presents with shortness of breath. She started having trouble breathing at home. She does not use oxygen at home. She was given a breathing treatment, inhaled dexamethasone, with some improvement by EMS. She still somewhat struggling to breathe. She relates a cough. No sputum production or fever. No leg swelling. No significant chest pain. Related Data Home Medications ?Medication ?Instructions ?Recorded ?Confirmed levothyroxine 125 mcg tablet 125 mcg PO DAILY@0100 12/05/19 10/18/23 (Euthyrox) aspirin 81 mg tablet,delayed 81 mg PO DAILY 07/06/20 10/18/23 release Previous Rx's ?Medication ?Instructions ?Recorded folic acid 1 mg tablet 1 mg PO DAILY #30 tabs 07/08/20 multivitamin with folic acid 400 1 tab PO DAILY #30 tabs 07/08/20 mcg tablet (Thera) thiamine mononitrate (vit B1) 100 100 mg PO DAILY #30 tabs 07/08/20 mg tablet (Vitamin B-1 (mononitrate)) albuterol sulfate 90 mcg/actuation 2 puff inhalation Q4H PRN 01/12/25 aerosol inhaler Shortness Of Breath #8.5 grams methylprednisolone 4 mg tablets in See Rx Instructions PO .COMPLEX 01/12/25 a dose pack (Medrol (Darion)) #21 ea Allergies Allergy/AdvReac Type Severity Reaction Status Date / Time codeine Allergy ALGY-Hives Verified 07/06/20 16:49 PFS ED PFSH: Medical History Uterine cancer Gall stones Superficial thrombophlebitis Vaginal bleeding Pancreatitis Alcohol abuse Obesity Hypothyroidism Surgical History H/O: hysterectomy H/O adenoidectomy History of tonsillectomy History of dilatation and curettage Family History Other Dementia Social History Smoking and tobacco/nicotine status: former use of tobacco/nicotine Alcohol intake: current Physical Exam Const: COMMON NORMALS: no acute distress GENERAL APPEARANCE: cooperative; not ill appearing and not frail appearing HENMT: COMMON NORMALS: normocephalic, atraumatic and Normal external nose present HEAD & SCALP: normocephalic and atraumatic FACE & SINUS: normal facial exam and face symmetric NOSE: Normal external nose present Eye: COMMON NORMALS: Equal, round and reactive pupils present and EOMs intact bilaterally PUPIL: Yes Equal, round and reactive pupils present Neck/C-Spine: GENERAL: Yes trachea midline Chest: CHEST: Yes Symmetrical chest wall rise Resp: EFFORT & INSPECTION: No able to speak in complete sentences, Yes tachypneic and Yes respiratory distress AUSCULTATION: wheezes Cardio: COMMON NORMALS: regular rate and regular rhythm RATE: regular rate RHYTHM: regular rhythm GI: COMMON NORMALS: Normal to inspection, nondistended, normoactive bowel sounds present Extremity: COMMON NORMALS: no pedal edema Neuro: JERALD COMA SCALE: document GCS findings Jerald coma scale eye opening: Spontaneous Jerald coma scale verbal response: Orientated [place] coma scale motor response: Obey commands Jerald coma scale total score: 15 SENSORY EXAM: Yes extremities (intact) Psych: COMMON NORMALS: speech normal SPEECH: Yes normal speech Skin: COMMON NORMALS: no rashes or lesions noted GENERAL SKIN EXAM: no rashes or lesions noted Course Vital Signs: Vital signs: Vital Signs Temperature 98.8 F 01/12/25 02:46 Pulse Rate 89 01/12/25 06:44 Respiratory Rate 18 01/12/25 06:44 Blood Pressure 139/74 01/12/25 06:44 Pulse Oximetry 93 01/12/25 06:44 Oxygen Delivery Me thod Room Air 01/12/25 05:32 Oxygen Flow Rate 4 01/12/25 02:46 Fraction of Inspir ed Oxygen 28 01/12/25 03:55 MDM - SOB/Dyspnea Medical Decision Making Patient was placed on BiPAP on arrival. She had significant improvement on BiPAP. She is down to 28% on BiPAP, so she was taken off. She is maintaining oxygen saturation above 90% off of BiPAP. Blood pressure is 100/74. Heart rates 84 currently. Chest x-ray is nonacute. Potassium is 3.0 and is repleted. Alcohol level is 106. Other laboratory not remarkable. She is received a DuoNeb breathing treatment, Solu-Medrol here with improvement. If she walks in the emergency department, and does well. we will discharge her home. Tapering dose of steroid. Lab Data 01/12/25 02:50 01/12/25 02:50 Labs/Radiology: Radiology Impressions Chest X-Ray 01/12/25 02:44 IMPRESSION: 1. No acute cardiopulmonary process. 2. Incidental/nonacute findings are listed in the report. Laboratory Results WBC 9.34 10^3/uL (3.29-11.43) 01/12/25 02:50 RBC 5.11 10^6/uL (3.85-5.65) 01/12/25 02:50 Hgb 14.40 g/dL (11.27-16.99) 01/12/25 02:50 Hct 45.2 % (36-47) 01/12/25 02:50 MCV 88.5 fl (85-98) 01/12/25 02:50 MCH 28.2 pg (27-33) 01/12/25 02:50 MCHC 31.9 g/dL (30-55) 01/12/25 02:50 RDW 14.6 % (12.1-15.1) 01/12/25 02:50 Plt Count 335 10^3/cmm (157-399) 01/12/25 02:50 MPV 8.9 fL (7.4-10.4) 01/12/25 02:50 Neut % (Auto) 55.9 % 01/12/25 02:50 Lymph % (Auto) 37.6 % 01/12/25 02:50 [place] % (Auto) 5.4 % 01/12/25 02:50 Eos % (Auto) 0.4 % 01/12/25 02:50 Baso % (Auto) 0.4 % 01/12/25 02:50 Neut # (Auto) 5.22 10^3/uL (1.8-7.7) 01/12/25 02:50 Lymph # (Auto) 3.5 10^3/uL (0.8-4.8) 01/12/25 02:50 [place] # (Auto) 0.5 10^3/uL (0.2-0.9) 01/12/25 02:50 Eos # (Auto) 0.0 10^3/uL (0.0-0.8) 01/12/25 02:50 Baso # (Auto) 0.0 10^3/uL (0.0-0.1) 01/12/25 02:50 Nucleated RBC % (auto) 0 % 01/12/25 02:50 Nucleated RBCs # 0.0 /100WBC 01/12/25 02:50 Sodium 139 mmol/L (136-145) 01/12/25 02:50 Potassium 3.0 mmol/L (3.5-5.1) L 01/12/25 02:50 Chloride 98 mmol/L (98-107) 01/12/25 02:50 Carbon Dioxide 23 mmol/L (22-29) 01/12/25 02:50 Anion Gap 21.0 (5-19) H 01/12/25 02:50 BUN 9 mg/dL (8-23) 01/12/25 02:50 Creatinine 0.7 mg/dL (0.5-0.9) 01/12/25 02:50 GFR Calculation 83.7 mL/min (90-130) L 01/12/25 02:50 Glucose 152 mg/dL (65-115) H 01/12/25 02:50 Calculated Osmolality 290 mOsm/kg (285-295) 01/12/25 02:50 Lactic Acid 3.4 mmol/L (0.5-2.2) H 01/12/25 02:50 Lactic Acid (Sepsis) 2.5 mmol/L (0.5-2.2) H 01/12/25 05:05 Calcium 9.0 mg/dL (8.5-10.5) 01/12/25 02:50 Total Bilirubin 0.6 mg/dL (0.15-1.2) 01/12/25 02:50 AST 25 U/L (0-32) 01/12/25 02:50 ALT 14 U/L (0-33) 01/12/25 02:50 Alkaline Phosphatase 113 U/L (35-105) H 01/12/25 02:50 Troponin T Baseline 7 ng/L (0-10) 01/12/25 02:50 Troponin T 120 Minute 10.83 ng/L (0-10) H 01/12/25 05:05 Delta Troponin T 3.83 ABS# (0-10) 01/12/25 05:05 NT-Pro-B Natriuret Pep 46 pg/mL (0-125) 01/12/25 02:50 Total Protein 6.9 g/dL (6.6-8.7) 01/12/25 02:50 Albumin 3.8 g/dL (3.5-5.2) 01/12/25 02:50 Globulin 3.1 g/dL (1.3-4.6) 01/12/25 02:50 Ethyl Alcohol 106 mg/dL (0-10) H 01/12/25 02:50 Influenza A (PCR) Negative (Negative) 01/12/25 04:09 Influenza Type B (PCR) Negative (Negative) 01/12/25 04:09 RSV (PCR) Negative (Negative) 01/12/25 04:09 SARS-CoV-2 (PCR) Negative (Negative) 01/12/25 04:09 All radiology interpretation(s) finalized by discharge Discharge Plan Discharge Patient Disposition: Home Clinical Impression: Hypokalemia, Asthma with exacerbation, Alcohol intoxication Condition: Stable Prescriptions: New methylprednisolone [Medrol (Darion)] 4 mg tablets,dose pack See Rx Instructions .ROUTE .COMPLEX Qty: 21 0RF Rx Instructions: orally per package directions Continued albuterol sulfate 90 mcg/actuation Hfa Aerosol Inhaler 2 puff INHALATION Q4H PRN (Reason: Shortness Of Breath) Qty: 8.5 0RF No Action levothyroxine [Euthyrox] 125 mcg tablet 125 mcg PO DAILY@0100 aspirin 81 mg Tablet,Delayed Release (Dr/Ec) 81 mg PO DAILY folic acid 1 mg Tablet 1 mg PO DAILY Qty: 30 0RF multivitamin with folic acid [Thera] 400 mcg Tablet 1 tab PO DAILY Qty: 30 0RF thiamine mononitrate (vit B1) [Vitamin B-1 (mononitrate)] 100 mg Tablet 100 mg PO DAILY Qty: 30 0RF Discharge Orders: Discharge ED (Routine); Ordered 01/12/25 Ordered By: Ottoniel Dooley Referrals: Jessica Tamayo DO [Primary Care Provider, BOX CLOSING MACHINE OPERATOR] - 4-7 days Patient Instructions: Hypokalemia (ED), Wheezing (ED), Opioid Safety, Pain Management, Patient Portal & [facility] Instructions Activity Restrictions/Additional Instructions: Use the albuterol inhaler every 4 hours while awake for the first 48 hours for the feel you needed or not. You may use it as needed following that. Other medication as directed. Return for fever, worsening cough or shortness of breath, other concerning symptoms despite treatment. Print Language: Bulgarian Coding Level of Care Code ED Technical Support Manager for Marshal [facility]las
[2025-01-12] MEDS: diphenhydrAMINE 50 mg/mL SDV 1mL 25 MG IVP (04:05)
[2025-01-12 04:52] LABS: Influenza A NEGATIVE (Negative); Influenza B NEGATIVE (Negative); Respiratory Syncytial Virus Ce NEGATIVE (Negative); SARS-CoV-2 PCR NEGATIVE (Negative)
[2025-01-12 05:28] LABS: Troponin 5 2HR 10.83 ng/L (0-10); Troponin 5 2HR Delta 3.83 ABS# (0-10)
[2025-01-12 05:29] LABS: Lactic Acid level (Lactate) 2.5 mmol/L (0.5-2.2)
[2025-01-12] MEDS: potassium chloride oral liq 20 mEq/15 mL UDC 40 MEQ PO (05:31)
== END 2025-01-12 06:45 | disposition home or self-care (01) ==
PROVIDERS: Emergency Provider Emergency Medicine; PCP Family Medicine
DX: E87.6 Hypokalemia (principal); J45.901 Unspecified asthma with (acute) exacerbation; F10.129 Alcohol abuse with intoxication, unspecified; Y90.5 Blood alcohol level of 100-119 mg/100 ml; Z79.82 Long term (current) use of aspirin; Z11.52 Encounter for screening for COVID-19; Z87.891 Personal history of nicotine dependence
CPT/HCPCS: 36415; 71045; 80053; 80307; 83605; 83880; 84484; 85025; 87040; 87637; 93005; 94640; 94660; 96374; 96375; 99285; J1200; J2919; J9999